=== PATIENT | female | born 1945 | race Caucasian/White ===

== ENCOUNTER → 2024-06-19 | Outpatient (CLI) | payer MEDICARE, BC, SELFPAY ==
--- NOTE | 2024-06-19 | XR_ITS ---
Examination: Lumbar spine, 5 views Technique: Lumbar spine AP, lateral, coned lateral lower lumbar spine, bilateral obliques 5 views Exam date and time: June 19, 2024 1211 hrs. Comparison October 08, 2021 Indications: Patient fell last year with injury to lower back, lower back pain. Findings: Severe osteopenia Kyphoplasty L4, L3 with cement projecting above and outside the L3 vertebral body No acute fracture Moderate disc narrowing L5-S1 Impression: Severe osteopenia. Kyphoplasty L4, L3 Moderate degenerative disc disease L5-S1
== END | disposition home or self-care (01) ==
PROVIDERS: PCP Family Medicine; Referring Provider Chiropractor; Visit Provider Chiropractor
DX: M85.88 Other specified disorders of bone density and structure, other site (principal); M51.379 Other intervertebral disc degeneration, lumbosacral region without mention of lumbar back pain or lower extremity pain
CPT/HCPCS: 72110

== ENCOUNTER 2024-09-20 22:20 | Emergency (ER) | payer MEDICARE, BC, SELFPAY ==
[2024-09-20 22:21] VITALS: BP 126/68; PULSE 81; RESP 18; TEMP 36.7; O2SAT 96; BMI 21.6
[2024-09-20 22:36] VITALS: PULSE 81; RESP 18; O2SAT 98
--- NOTE | 2024-09-20 22:48 | PD.EDFALL ---
ED Fall Injury RME/HPI General Chief Complaint: Fall Stated Complaint: fall Time Seen by Provider: 09/20/24 22:49 Arrival date/time: 09/20/24 22:20 RME / HPI RME / HPI Narrative: This section includes all my notes and documentations, including HPI, PE, and ED course. Travis Cool MD HPI: 78 y/o female with Hx of Arthritis and Osteoporosis presents to ED BIBA from home c/o severe right shoulder pain s/p fall x approximately 1 hour ago. Patient was using her walker when she tripped and fell, landing on her right shoulder. Denies hitting her head or LOC. No neck pain or back pain. No chest pain or abdominal pain. No other limb pain. No other complaints. ROS: All negative except as documented in HPI. Physical Exam: General: Alert and oriented. Appears uncomfortable. Eyes: Conjunctivae and lids clear. EOMI. PERRL. ENT: No signs of head trauma. Neck: Supple. No tenderness. Heart: RRR. Lungs: No respiratory distress. Good air movement. No rhonchi, wheezing, rales. Chest: No tenderness. Abdomen: Soft and nontender. Normal bowel sounds. No distension. No rebound or guarding. Back: No tenderness. Skin: Warm and dry. Neuro: Alert and oriented X 3. Cranial Nerves II-XII grossly intact. No peripheral motor deficits. Musculoskeletal: Remarkable for severe right shoulder tenderness. All other major joints and bones are not tender with no limited ROM. I reviewed EMS notes. I reviewed all diagnostic test results. My interpretation of the right shoulder x-ray is fracture. At this point, diagnoses include fracture of right shoulder Treatment here included Ibuprofen, Tylenol with Codeine, Lidocaine Patch, Arm Sling. Significant improvement noted. Recommended outpatient orthopedic care. Based on my best medical judgment, made decision no further evaluation or treatment indicated at this time. Patient understands and agrees to the discharge instructions customized and printed, see below. Discharge Instructions from Dr. Cool printed for you: 1. Unfortunately, you fractured your right shoulder. Fortunately, emergent surgery is not needed. 2. Wear the arm sling until cleared by a doctor taking care of you. 3. Apply ice for 20 minutes every 2-3 hours today and tomorrow. 4. Ibuprofen 200 mg every 6-8 hours today and tomorrow to decrease inflammation then as needed. Lidocaine patches and Tylenol with codeine for pain. 5. See your medical provider on 09/23/2024 for recheck. Ask for a referral to see orthopedic surgeon for further care. 6. Seek immediate medical care with intolerable pain, if you can't move your fingers, your fingers turn cold and blue, or with any concerns. Travis Cool MD Related Data Home Medications ?Medication ?Instructions ?Recorded ?Confirmed amlodipine 5 mg tablet 1 tab PO DAILY 12/15/21 12/22/21 atorvastatin 40 mg tablet 1 tab PO HS 12/15/21 12/22/21 gabapentin 300 mg capsule 1 cap PO TID 12/15/21 12/22/21 hydrocodone 5 mg-acetaminophen 325 1 tab PO BID 12/15/21 12/22/21 mg tablet Held on 12/15/21. Instructions: Resume on 12/16/21. Previous Rx's ?Medication ?Instructions ?Recorded acetaminophen 300 mg-codeine 30 mg 2 tab PO Q8H PRN pain #20 tabs 09/21/24 tablet lidocaine 5 % topical patch 2 patch topical QDAY PRN pain #30 09/21/24 (Lidoderm) ea Allergies Allergy/AdvReac Type Severity Reaction Status Date / Time doxycycline Allergy Severe Hives Verified 12/22/21 09:49 Sulfa (Sulfonamide Allergy Intermediate ICHY Verified 12/22/21 09:49 Antibiotics) Review of Systems Review of Systems Systems Reviewed: All systems reviewed, normal except as documented Past Medical History Past Medical History CARDIAC: Positive Cardiac Disorders, Hypercholesterolemia and Hypertension MUSCULOSKELETAL: Positive Musculoskeletal Disorders, Arthritis and Osteoporosis ENT: Positive Cataracts OTHER HISTORY: Positive Falls, Chicken Pox and Measles Family History FAMILY HISTORY: Positive Family Surgery Surgical History SURGICAL: Positive Tonsillectomy and Lumpectomy ED Exam Narrative Physical exam: Refer to HPI above Course Quality Measures none Orders Category Date Time Status sling [Splint / Immobilizer] STAT Care 09/21/24 00:57 Active XR shoulder RT min 2V Stat Exams 09/21/24 00:01 Taken ACETAMINOPHEN w/COD 300-30 [Tylenol w/Cod #3] Med 09/21/24 00:56 Discontinued 2 tab PO X1 ONE Ibuprofen Tab [Motrin Tab] Med 09/21/24 00:56 Discontinued 400 mg PO X1 ONE Lidocaine 5% Patch Med 09/21/24 00:56 Discontinued 2 patch TOP X1 ONE Vital Signs Vital signs: Vital Signs Temperature 98.1 F 09/20/24 22:21 Pulse Rate 81 09/20/24 22:21 Respiratory Rate 18 09/20/24 22:21 Blood Pressure 126/68 09/20/24 22:21 Pulse Oximetry (%) 96 09/20/24 22:21 Oxygen Delivery Method Room Air 09/20/24 22:21 Fall MDM Narrative MDM Narrative:: Scribe Attestation: ISindy, am scribing for and in the presence of Dr. Cool. Provider Notation: Although this document has been carefully reviewed, there may still be some phonetic and other typographical errors.? These errors are purely grammatical due to imperfections in the software program and should not be construed in any way to? compromise the substance of the patient's medical care during this visit. 78 y/o female with Hx of Arthritis and Osteoporosis presents to ED BIBA from home c/o severe right shoulder pain s/p fall x approximately 1 hour ago. Patient was using her walker when she tripped and fell. Denies hitting her head or LOC. Patient was not able to get up on her own and was down for about 30 minutes before EMS arrived. Patient has a Sulfa allergy. No other complaints. Patient data External records reviewed:: [facility] previous records (Reviewed prior ED records from 05/22/23. Patient was seen for Closed comminuted intra-articular fracture of distal end of femur.) and EMS form Clinical information provided by:: patient and EMS Social determinants that could affect healthcare access:: none Patient has the following chronic illnesses:: Hypercholesterolemia, Hypertension, Arthritis and Osteoporosis How is presenting disease/condition affected by chronic disease/condition?: exacerbated by Evaluation data The following diagnostics were reviewed and interpreted by me:: radiology exam(s) Lab and/or radiology exams considered but not ordered:: None Interpretation Summary: Right shoulder fracture Medications / Prescriptions Medications or Prescriptions considered but not ordered:: None Medication administrations:: Medication Administration History Discontinued Medications Acetaminophen/Codeine Phosphate (Acetaminophen W/Cod 300-30 Tablet) 2 tab PO X1 ONE Stop: 09/21/24 00:57 Last Admin: 09/21/24 02:02 Dose: 2 tab Documented By: GIOVANNI Ibuprofen (Ibuprofen Tab 400 Mg Tablet) 400 mg PO X1 ONE Stop: 09/21/24 00:57 Last Admin: 09/21/24 02:02 Dose: 400 mg Documented By: GIOVANNI Lidocaine (Lidocaine 5% 1 Patch) 2 patch TOP X1 ONE Stop: 09/21/24 00:57 Last Admin: 09/21/24 02:03 Dose: 2 patch Documented By: GIOVANNI Ibuprofen, Tylenol with Codeine, Lidocaine Patch Consultations Consultation(s) initiated? (list below): No Diagnosis Fall Differential Diagnosis: syncope, dislocation of shoulder region, fracture of wrist, compression fracture and concussion without loss of consciousness Most likely diagnosis given after review of the tests above:: Fracture of right shoulder Admission Indicated Admission indicated?: not indicated Explain why admission is indicated or not indicated:: With significant improvement, there was no indication for admission.? Admission Request Was there a request for admission?: No Disposition Plan Disposition Plan: Discharge Discharge Attestation Discharge Attestation: The patient and all family members were given an opportunity to ask questions and understood the discharge instructions. Discharge instructions specifically effects, indications for sooner follow up or return to the emergency department, and the expected course of current diagnosis. Patient condition: Stable Discharge Plan Plan Patient Disposition: HOME (Self Care) Prescriptions/Referrals Prescriptions/Med Rec: New acetaminophen-codeine 300-30 mg tablet 2 tab PO Q8H MDD 6 PRN (Reason: pain) Qty: 20 0RF lidocaine [Lidoderm] 5 % adhesive patch,medicated 2 patch topical QDAY PRN (Reason: pain) Qty: 30 0RF Rx Instructions: leave on most painful area for up to 12 hrs No Action atorvastatin 40 mg tablet 1 tab PO HS Patient Comments: TAKE 1 TABLET BY MOUTH EVERY DAY AT NIGHT AT BEDTIME hydrocodone-acetaminophen 5-325 mg tablet 1 tab PO BID Patient Comments: TAKE 1 TABLET BY MOUTH TWICE A DAY NEEDED amlodipine 5 mg tablet 1 tab PO DAILY Patient Comments: TAKE 1 TABLET BY MOUTH EVERY DAY gabapentin 300 mg capsule 1 cap PO TID Patient Comments: TAKE 1 CAPSULE BY MOUTH THREE TIMES A DAY FOR NEUROPATHY Problem List Clinical Impression: Fracture of right shoulder Patient/Caregiver Discharge Instructions Discharge Activity: activity as tolerated Education Materials: ED Fracture, Shoulder Additional Instructions: Discharge Instructions from Dr. Cool printed for you: 1. Unfortunately, you fractured your right shoulder. Fortunately, emergent surgery is not needed. 2. Wear the arm sling until cleared by a doctor taking care of you. 3. Apply ice for 20 minutes every 2-3 hours today and tomorrow. 4. Ibuprofen 200 mg every 6-8 hours today and tomorrow to decrease inflammation then as needed. Lidocaine patches and Tylenol with codeine for pain. 5. See your medical provider on 09/23/2024 for recheck. Ask for a referral to see orthopedic surgeon for further care. 6. Seek immediate medical care with intolerable pain, if you can't move your fingers, your fingers turn cold and blue, or with any concerns. Print Language: Burundian Stand Alone Forms: Marilyn Award Info., Patient Portal Info Letter
[2024-09-20 23:29] VITALS: BP 118/61; PULSE 79; RESP 19; TEMP 36.5; O2SAT 96
--- NOTE | 2024-09-21 00:01 | XR_ITS ---
Examination: Right shoulder 2 views TECHNIQUE: AP internal rotation Y-view right shoulder 2 views Date and time: September 21, 2024, 0023 hours INDICATIONS: Patient fell today with injury to the shoulder, shoulder pain. FINDINGS: Acute comminuted fractures humeral neck, angulation and at least 1.5 with shaft offset at the main fracture site No humeral head dislocation IMPRESSION: Acute comminuted angulated displaced fractures neck
[2024-09-21 02:02] VITALS: TEMP 36.9
[2024-09-21] MEDS: ACETAMINOPHEN w/COD 300-30 TABLET 2 TAB PO (02:02)
[2024-09-21] MEDS: IBUPROFEN TAB 400 MG TABLET PO (02:02)
[2024-09-21] MEDS: LIDOCAINE 5% 1 PATCH 2 PATCH TOP (02:03)
[2024-09-21 05:19] VITALS: BP 102/61; PULSE 74; RESP 20; TEMP 36.8; O2SAT 96
[2024-09-21 06:40] VITALS: BP 127/59; PULSE 88; RESP 16; TEMP 36.9; O2SAT 98
== END 2024-09-21 06:45 | disposition home or self-care (01) ==
LOC: SERX 09-21 05:02
PROVIDERS: Emergency Provider Emergency Medicine; PCP Family Medicine
DX: S42.201A Unspecified fracture of upper end of right humerus, initial encounter for closed fracture (principal); W01.0XXA Fall on same level from slipping, tripping and stumbling without subsequent striking against object, initial encounter
CPT/HCPCS: 73030; 99283; A4565; J3490; A9270

== ENCOUNTER 2025-03-05 16:32 | Inpatient (IN) | payer MEDICARE, BC, SELFPAY ==
--- NOTE | 2025-03-05 16:45 | PC.NURSE ---
Pt did not answer when name was called and was not found outside.
[2025-03-05 16:49] VITALS: BP 113/66; PULSE 90; RESP 16; TEMP 36.7; O2SAT 96; O2SAT 97; BMI 20.9; BMI 25.2
--- NOTE | 2025-03-05 17:25 | EKG_ITS ---
[facility] Test Date: 2025-03-05 Pat Name: ANNE CAT Department: Room: - Gender: Female [employer] Clerk: : 1945 Requested By: Ruby Nettles Order Number: [id number] Reading MD: Ruby Nettels Measurements Intervals [place] Rate: 84 P: 48 AR: 140 QRS: 36 QRSD: 94 T: 36 QT: 349 QTc: 414 Interpretive Statements SINUS RHYTHM No previous ECG available for comparison /store/S0/[id number]/ecg/[id number].pdf
--- NOTE | 2025-03-05 17:25 | XR_ITS ---
Examination: CT brain head without contrast. 2-D sagittal coronal reconstructions Date and time of exam: March 05, 2025, 1747 hours, comparison September 20, 2023 INDICATIONS: Ground-level fall today with injury to the head, head pain CTDI: vol (mGy): 48.5 DLP: (mGycm): 1002 Technique: Multiple CT axial sections of the brain have been obtained, 5 mm slice thickness. Contrast has not been administered. 2-D sagittal, coronal reconstructions have been obtained Low dose protocols were performed. One or more of the following dose reduction techniques were used; automated exposure control, adjustment of the mA and/or KV according to patient size, use of iterative reconstruction technique. Findings: No significant ventricular enlargement. 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 No mass effect or midline shift Basal cisterns are not remarkable. Fourth ventricle is midline. Cranial vault intact. Impression: Negative for acute hemorrhage, mass effect or midline shift
--- NOTE | 2025-03-05 17:25 | XR_ITS ---
Examination: Left hip AP, lateral, AP pelvis 3 views Technique: Hip AP lateral, AP pelvis, 3 views Exam date and time: March 05, 2025, 1741 hours INDICATIONS: Patient fell today with injury to the left hip, left hip pain. FINDINGS: No acute left hip fracture or dislocation Right hip bones of the pelvis intact IMPRESSION: No acute hip or pelvic fracture If pain persists, recommend 1 day follow-up AP pelvis.
--- NOTE | 2025-03-05 17:25 | XR_ITS ---
Examination: CT cervical spine without contrast 2-D sagittal reconstructions 2-D coronal reconstructions 3-D reconstructions. Exam date and time: March 05, 2025, 1749 hours, comparison May 22, 2023 INDICATIONS: Ground-level fall today with injury to the neck, neck pain CTDI:vol (mGy) 13.6 DLP: (mGycm) 305 Technique: Multiple 2 mm axial sections of the cervical spine have been obtained. The coronal and sagittal reconstructions have been obtained. 3-D reconstructions have been obtained. Low dose protocols were performed. One or more of the following dose reduction techniques were used; automated exposure control, adjustment of the mA and/or KV according to patient size, use of iterative reconstruction technique. Findings: Axial sections demonstrate intact base of the skull. C1 exhibit satisfactory relationship to the odontoid. No acute cervical vertebral body fracture seen. Alignment posterior spinous processes satisfactory. Stable minimal chronic wedging T2 Impression: No acute cervical fracture.
--- NOTE | 2025-03-05 17:25 | XR_ITS ---
EXAMINATION: AP chest single view TECHNIQUE: AP portable supine chest single view Date and time: March 05, 2025, 1741 hours INDICATIONS: Patient fell today with injury to the chest, chest pain. FINDINGS: Moderate prominence left ventricle No pneumothorax Left axillary surgical clips Clavicles ribs appear intact IMPRESSION: No pneumothorax pulmonary contusion or hemothorax
--- NOTE | 2025-03-05 17:27 | PD.EDAMS ---
Altered Mental Status RME/HPI General Chief Complaint: Altered Mental Status Stated Complaint: alter mental status Time Seen by Provider: 03/05/25 17:30 Arrival date/time: 03/05/25 16:32 79-year-old female patient with significant history of hypertension, was brought in by EMS for evaluation regarding altered mental status. Last well-known time yesterday patient was noted to be altered than usual, usually GCS 15 currently GCS 13. Apparently today her caregiver visited her and patient patient was noted lying on the floor with a pillow on cell phone with her. Patient denies any headache neck pain chest pain but complain of mild pelvic pain more on the left hip. Patient denies any fever dysuria abdominal pain cough or other complaints. No fever noted also. No other complaints noted. Patient not taking any blood thinner. Patient lives alone. Per conversation with her daughter patient was noted to be getting worsening confusion for the last 1 week. Related Data Home Medications ?Medication ?Instructions ?Recorded ?Confirmed amlodipine 5 mg tablet 1 tab PO DAILY 12/15/21 12/22/21 atorvastatin 40 mg tablet 1 tab PO HS 12/15/21 12/22/21 gabapentin 300 mg capsule 1 cap PO TID 12/15/21 12/22/21 hydrocodone 5 mg-acetaminophen 325 1 tab PO BID 12/15/21 12/22/21 mg tablet Held on 12/15/21. Instructions: Resume on 12/16/21. Previous Rx's ?Medication ?Instructions ?Recorded acetaminophen 300 mg-codeine 30 mg 2 tab PO Q8H PRN pain #20 tabs 09/21/24 tablet lidocaine 5 % topical patch 2 patch topical QDAY PRN pain #30 09/21/24 (Lidoderm) ea Allergies Allergy/AdvReac Type Severity Reaction Status Date / Time doxycycline Allergy Severe Hives Verified 12/22/21 09:49 Sulfa (Sulfonamide Allergy Intermediate ICHY Verified 12/22/21 09:49 Antibiotics) Review of Systems Review of Systems Narrative Review of Systems: Review of system reviewed and within normal limits except mentioned in HPI ED Exam Narrative Physical exam: VITAL SIGNS: Reviewed. GENERAL APPEARANCE: follows commands, no acute distress, alert oriented x 2 GCS 14 HEAD AND FACE: Non-traumatic. ENT: PERRL, pink conjunctivitis, eyelid no trauma, Mucous membrane moist. NECK: Supple, nontender, no nuchal rigidity. CHEST: No tenderness, no crepitus, no paradoxical movement, no retractions. LUNGS: Clear, well ventilated, symmetric, no rales, no wheezing, no ronchi, no stridor, good breath sounds bilaterally. HEART: Regular rate, regular rhythm, no murmur, no gallops. ABDOMEN: Soft, positive bowel sounds, nondistended, no guarding, nontender, no rebound, no masses, RECTAL: Deferred. GENITAL: Deferred. NEUROLOGICAL: Gross motor function intact sensory function intact, Appropriate for age. MUSCULOSKELETAL: low back nontender, full range of motion. EXTREMITIES: Left hip tenderness, full range of motion. SKIN: Color pink, dry, no rash, no lacerations, no abrasions, no contusions. LYMPHATICS: Deferred. Course Quality Measures none Orders Category Date Time Status EKG (ED ONLY) *Do not use* NOW Care 03/05/25 17:26 Completed Straight [In and Out Catheter] X1 Care 03/05/25 17:[address] cervical spine wo con Stat Exams 03/05/25 17:[address] head/brain wo con Stat Exams 03/05/25 17:25 Completed EKG (ED Only) Stat Exams 03/05/25 17:25 Draft XR chest 1V Stat Exams 03/05/25 17:25 Completed XR hip LT w pelvis 2-3V Stat Exams 03/05/25 17:25 Completed B-Type Natriuretic Peptide Stat Lab 03/05/25 18:20 Completed CBC Stat Lab 03/05/25 18:20 Completed Comprehensive Metabolic Panel Stat Lab 03/05/25 18:20 Completed Partial Thromboplastin Time Stat Lab 03/05/25 18:20 Completed Troponin I Stat Lab 03/05/25 18:20 Completed Urinalysis, C/S if Indicated Stat Lab 03/05/25 19:31 Completed Urine Culture Stat Lab 03/05/25 19:31 Received Ringers Lactated 1000 ml [Lactated Ringers] 1,000 ml Med 03/05/25 17:26 Discontinued IV 999 mls/hr cefTRIAXone/D5w 1gm IV premix [Rocephin/D5w 1gm IV Med 03/05/25 20:13 Active premix] 1 gm in 50 ml IV X1 Vital Signs Vital signs: Vital Signs Temperature 98.0 F 03/05/25 16:49 Pulse Rate 90 03/05/25 16:49 Respiratory Rate 16 03/05/25 16:49 Blood Pressure 113/66 03/05/25 16:49 Pulse Oximetry (%) 96 03/05/25 16:49 Oxygen Delivery Method Room Air 03/05/25 16:49 Altered Mental Status MDM Narrative MDM Narrative:: 03/05/25 16:32 79-year-old female patient with significant history of hypertension, was brought in by EMS for evaluation regarding altered mental status. Last well-known time yesterday patient was noted to be altered than usual, usually GCS 15 currently GCS 13. Apparently today her caregiver visited her and patient patient was noted lying on the floor with a pillow on cell phone with her. Patient denies any headache neck pain chest pain but complain of mild pelvic pain more on the left hip. Patient denies any fever dysuria abdominal pain cough or other complaints. No fever noted also. No other complaints noted. Patient not taking any blood thinner. Patient lives alone. Per conversation with her daughter patient was noted to be getting worsening confusion for the last 1 week. On multiple reevaluation patient was noted to be confused GCS of 13 she is only very alert and oriented x 4. Her laboratory workup is significant for UTI. CBC came back unremarkable. BMP unremarkable. CT scan of the head came back normal cervical CT scan came back unremarkable chest x-ray came back unremarkable x-ray of the pelvis came back unremarkable. Patient was given IV fluids, was also given IV ceftriaxone. Patient data External records reviewed:: None Clinical information provided by:: patient Social determinants that could affect healthcare access:: none Patient has the following chronic illnesses:: Hypertension How is presenting disease/condition affected by chronic disease/condition?: uneffected by Evaluation data The following diagnostics were reviewed and interpreted by me:: lab results, radiology exam(s) and EKG tracing(s) Lab and/or radiology exams considered but not ordered:: None Interpretation Summary: EKG shows sinus rhythm, ventricular rate of 84 bpm, no ST segment elevation depression noted. Medications / Prescriptions Medications or Prescriptions considered but not ordered:: None Medication administrations:: Medication Administration History Ceftriaxone Sodium/Dextrose (Rocephin/D5w 1gm Iv Premix) 1 gm in 50 mls @ 100 mls/hr IV X1 ONE Stop: 03/05/25 20:42 Discontinued Medications Lactated Ringer's (Lactated Ringers) 1,000 mls @ 999 mls/hr IV .Q1H1M ONE Stop: 03/05/25 18:26 Last Infusion: 03/05/25 19:58 Dose: Infused Documented By: Admin: 03/05/25 18:51 Dose: 999 mls/hr Documented By: DELFINA IV fluids ceftriaxone IV Consultations Consultation(s) initiated? (list below): No Diagnosis Differential diagnosis altered mental status: altered mental status and sepsis Most likely diagnosis given after review of the tests above:: Altered mental status, UTI Admission Indicated Admission indicated?: indicated Admission Request Was there a request for admission?: Yes Admission Attestation Admission request attestation: Discussed case with [Dr. Soni] from Hospitalist service regarding admission. Discussed patients ED course, exam findings, labs, and radiology results. The Hospitalist [agrees,] to accept the patient for admission. Disposition Plan Disposition Plan: Admit Discharge Plan Plan Patient Disposition: Admit Acute Care w/in Hospital Prescriptions/Referrals Prescriptions/Med Rec: No Action atorvastatin 40 mg tablet 1 tab PO HS Patient Comments: TAKE 1 TABLET BY MOUTH EVERY DAY AT NIGHT AT BEDTIME hydrocodone-acetaminophen 5-325 mg tablet 1 tab PO BID Patient Comments: TAKE 1 TABLET BY MOUTH TWICE A DAY NEEDED amlodipine 5 mg tablet 1 tab PO DAILY Patient Comments: TAKE 1 TABLET BY MOUTH EVERY DAY gabapentin 300 mg capsule 1 cap PO TID Patient Comments: TAKE 1 CAPSULE BY MOUTH THREE TIMES A DAY FOR NEUROPATHY acetaminophen-codeine 300-30 mg tablet 2 tab PO Q8H MDD 6 PRN (Reason: pain) Qty: 20 0RF lidocaine [Lidoderm] 5 % adhesive patch,medicated 2 patch topical QDAY PRN (Reason: pain) Qty: 30 0RF Rx Instructions: leave on most painful area for up to 12 hrs Referrals: No Primary/Family,Physician [Primary Care Provider] - In 1 week Problem List Clinical Impression: Altered mental status, UTI (urinary tract infection) Patient/Caregiver Discharge Instructions Discharge Activity: activity as tolerated Education Materials: Understanding Urinary Tract ... Print Language: Italian Stand Alone Forms: Marilyn Award Info., Patient Portal Info Letter
--- NOTE | 2025-03-05 17:32 | PC.NURSE ---
NIH scored a 5 due to patients underlying lower extremity weakness and confusion noted at this time.
[2025-03-05 18:29] VITALS: BP 135/76; PULSE 82; RESP 21; TEMP 36.6; O2SAT 97
[2025-03-05] MEDS: RINGERS LACTATED 1000 ML 1,000 ML 999 ML IV (18:51)
[2025-03-05 18:54] LABS: Basophils # (Auto) 0.0 Thou/mm3 (0.0-0.2); Basophils % (Auto) 0 % (0-2.5); Eosinophils # (Auto) 0.1 Thou/mm3 (0.0-0.5); Eosinophils % (Auto) 1 % (0-10); Hematocrit 38.8 % (36.0-46.0); Hemoglobin 13.3 g/dL (12.0-16.0); Immature Granulocytes Auto 0.07 Thou/mm3 (0.00-0.00); Lymphocytes # (Auto) 0.9 Thou/mm3 (1.0-4.8); Lymphocytes % (Auto) 9 % (10-50); Mean Corpuscular HGB Conc 34.3 g/dl (31.0-37.0); Mean Corpuscular Hemoglobin 34.1 pg (25.0-35.0); Mean Corpuscular Volume 100 fL (80-100); Monocytes # (Auto) 0.8 Thou/mm3 (0.0-0.8); Monocytes % (Auto) 9 % (0-12); Neutrophils # (Auto) 7.6 Thou/mm3 (1.8-7.7); Neutrophils % (Auto) 80 % (37-80); Nucleated Red Blood Cell # 0.00 Thou/mm3 (0.00-0.00); Nucleated Red Blood Cell % 0 /100 WBC (0); Platelet Count 230 Thou/mm3 (140-440); RDW Standard Deviation 55.4 fL (36.4-46.3); Red Blood Count 3.90 Miln/mm3 (4.00-5.20); White Blood Count 9.5 Thou/mm3 (3.6-11.0)
[2025-03-05 19:02] LABS: Partial Thromboplastin Time 23.6 Seconds (22.0-36.0)
[2025-03-05 19:04] LABS: Alanine Aminotransferase 39 U/L (10-49); Albumin, Serum 3.6 gm/dL (3.4-4.8); Albumin/Globulin Ratio 1.7 (1.2-2.2); Alkaline Phosphatase 115 U/L (46-116); Anion Gap 16 (7-16); Aspartate Amino Transferase 37 U/L (0-34); BUN/Creatinine Ratio 12 Ratio (12-20); Bilirubin,Total 0.8 mg/dL (0.3-1.2); Blood Urea Nitrogen 7 mg/dL (9-23); Calcium 9.1 mg/dL (8.3-10.6); Calcium (Corrected) 9.4 mg/dL (8.5-10.1); Carbon Dioxide 23.0 mMol/L (20.0-31.0); Chloride 99 mMol/L (98-107); Creatinine (Component) 0.6 mg/dL (0.6-1.3); Estimated Creatinine Clearance 70.0 mL/min (>60); Globulin 2.1 gm/dL (2.3-3.5); Glucose 88 mg/dL (74-106); Osmolality,Calculated 272 (275-295); Potassium 3.4 mMol/L (3.4-5.1); Sodium 138 mMol/L (136-145); Total Protein 5.7 gm/dL (5.7-8.2); Troponin I < 0.020 ng/mL (0.0-0.045); eGFR > 60 See Note
[2025-03-05 19:15] LABS: B-Type Natriuretic Peptide 51 pg/mL (0-100)
[2025-03-05 19:26] VITALS: BP 134/77; PULSE 75; RESP 18; TEMP 36.7; O2SAT 99
[2025-03-05 19:46] LABS: Collection Type, Urine Clean Catch
[2025-03-05 20:07] LABS: Bacteria,Urine 4+; Bilirubin,Urine Negative (Negative); Blood,Urine Trace (Negative); Clarity,Urine Turbid (Clear/Hazy); Color,Urine Yellow (Lt Yel-Yel); Glucose, Urine Negative (Negative); Ketones,Urine 3+ (Negative); Leukocyte Esterase,Urine Positive (Negative); Nitrite,Urine Positive (Negative); PH,Urine 5.5 (5.0-7.0); Protein,Urine 1+ (Neg - Trace); RBC,Urine 24 /hpf (0-3); Specific Gravity,Urine 1.020 (1.001-1.035); Squamous Epithelial Cell,Urine 4 /hpf (0-5); Transitional Epi Cells,Urine 1 /hpf (0-5); Urobilinogen,Urine 2.0 mg/dL (0.0-1.0); WBC,Urine 396 /hpf (0-5)
[2025-03-05 20:09] LABS: Culture Indicated,Urine Yes
[2025-03-05] MEDS: cefTRIAXone/D5w 1gm IV premix 1 GM/50 ML BAG IV (20:27)
[2025-03-05 20:33] VITALS: BP 135/82; PULSE 83; RESP 16; TEMP 36.7; O2SAT 97
--- NOTE | 2025-03-05 21:35 | XR_ITS ---
Examination: Abdomen AP single view Technique: AP portable supine abdomen, single view Exam date and time: March 05, 2025, 2158 hours INDICATIONS: Abdominal tenderness and distention today. FINDINGS: Moderate to large amounts of stool throughout the colon Mild small bowel ileus No free air. Severe osteopenia with kyphoplasties involving multiple lumbar vertebral bodies IMPRESSION: Moderate to large amounts of stool throughout the colon Mild small bowel ileus
[2025-03-05 21:57] LABS: Amphetamine/Methamp Scrn,U Negative (Negative); Barbiturate Screen,Urine Negative (Negative); Benzodiazepines Screen,Urine Negative (Negative); Benzoylecgonine Screen, Ur Negative (Negative); Fentanyl Screen,Urine Negative (Negative); Opiate Screen,Urine Negative (Negative); THC Screen,Urine Negative (Negative)
--- NOTE | 2025-03-05 22:50 | PC.NURSE ---
REPORT GIVEN TO FLOOR NURSE ABNER
[2025-03-05 23:20] VITALS: BMI 17.9
--- NOTE | 2025-03-05 23:22 | PC.NURSE ---
patient is alert and oriented x name, place, and situation but not oriented to time. Attempted to call both daughters, martin and ronald 2x each, with no answer to obtain admission questions. Pt is able to answer some questions with accuracy in comparison to chart review, but is unable to recall some information. Will pass to day nurse to attempt to obtain information again.
--- NOTE | 2025-03-05 23:24 | ESHP_ITS ---
<Statement entered by Cat Kevin MD - 03/06/25 05:24> Inessa Laguerre is 79 yr female with past medical history of hypertension and osteoporosis brought in by ambulance after caregiver found patient to be lying on the floor. Per caregiver and daughter, patient's baseline mentation is alert and oriented x 3. Requires assistance with ADLs. Caregiver noticed worsening confusion since past 1 week. At bedside, she is oriented to self and place. At this time she is denying any urinary symptoms, headache, n/v, abdominal pain. Patient is aware that she is in the hospital due to a fall. Vitals were stable, labs unremarkable, UA consistent with UTI. EKG sinus rhythm QTC 414. Abd Xr moderate to large amounts of stool throughout the colon, mild small bowel ileus. Hip and pelvis XR no acute fractures. Head CT unremarkable. Chest XR negative for disease, no cervical fracture on CT spine. Patient admitted for Acute encephalopathy in setting of UTI. Started IV ceftriaxone, urine cultures are pending and PT. The patient's management plan was discussed with my attending physician Dr. Garza. Cat Kevin, PGY-2 Documentation for date of: 03/05/25 HPI History of Present Illness History of present illness: 79-year-old female patient with significant history of hypertension, was brought in by EMS for evaluation regarding altered mental status. Admitted for acute encephalopathy found to have UTI. ED Course Summary Vitals: BP 113/66 HR 90 RR 16 T 98F O2 sat 96% RA Labs: CBC wnl CMP wnl UA turbid protein +1 ketones +3 RBC 24 WBC 396 Bacteria +4 Leukocyte Esterase + Imaging: EKG sinus rhythm QTC 414. Abd Xr moderate to large amounts of stool throughout the colon, mild small bowel ileus. Hip and pelvis XR no acute fractures. Head CT unremarkable. Chest XR no pneumothorax, pulmonary contusion or hemothorax. Cervical spine CT no acute cervical fracture. Treatment: Magnesium hydroxide 30mL, Ceftriaxone, LR 1 L. Upon initial exam patient is AOx1 but in no apparent distress. She was not able to recall much of her history so most of the following note is pulled from ED documentation. Her last known well-known time yesterday patient was noted to be altered than usual, was CGS13 in ED, currently GCS 15. Apparently today her caregiver visited her and patient patient was noted lying on the floor with a pillow on cell phone with her. She is unsure how long she was unconscious for. Patient denies any headache neck pain chest pain but complain of mild pelvic pain more on the left hip. She was relieved to learn the imaging was negative for any acute fractures. Patient denies any fever dysuria abdominal pain cough or other complaints. No fever noted also. No other complaints noted denies, headache, nausea, vomiting, dizziness, chills. Is unsure of what medications she takes at home. Patient not taking any blood thinner. Patient lives alone. Per conversation with her daughter patient was noted to be getting worsening confusion for the last 1 week. 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 Exam Vital Signs Temp Pulse Resp BP Pulse Ox O2 Del Method 98.0 F 83 16 135/82 H 97 Room Air 03/05/25 20:33 03/05/25 20:33 03/05/25 20:33 03/05/25 20:33 03/05/25 20:33 03/05/25 20:33 Narrative Exam GENERAL APPEARANCE: AOx1. NAD, activity normal for age, well developed/ well nourished, no cyanosis, pallor, or diaphoresis. HEENT: Normocephalic atraumatic, no facial trauma, neck is supple. Lids/conjunctiva normal. Mucous membranes moist, nares normal, lips/teeth normal uvula midline without oral pharyngeal erythema, exudate or swelling TMs normal bilaterally. No lymphangitis/lymphedema. CARDIAC: Regular rate and rhythm, S1+S2 heard. No murmurs, rubs, or gallops noted RESPIRATORY: respiratory effort normal, speaks in full sentences, no tripod position, no accessory muscle use. Lungs clear to auscultation without rhonchi, wheezes, rales ABDOMINAL: NBS. Soft, ND/NT. No evidence of fluid wave. No pulsatile masses on exam, rebound tenderness, Mantilla sign or pain over Mcburney's point. MUSCLES/EXTREMITIES: No abnormal range of motion, no swelling. DERM: Warm, pink and dry. No rashes, dermatoses, petechiae or lesions. NEUROLOGICAL: Speech is clear and appropriate. Normal level of consciousness. Gait and coordination are normal. 5/5 strength in all extremities. PSYCH: Normal mood and affect. Judgement/competence is appropriate Results: Labs 03/06/25 04:40 03/06/25 04:40 Labs: Short CBC 03/05/25 Range/Units 18:20 WBC 9.5 (3.6-11.0) Thou/mm3 Hgb 13.3 (12.0-16.0) g/dL Hct 38.8 (36.0-46.0) % Plt Count 230 (140-440) Thou/mm3 BMP 03/05/25 18:20 Sodium 138 Potassium 3.4 Chloride 99 Carbon Dioxide 23.0 BUN 7 L Creatinine 0.6 Glucose 88 Calcium 9.1 Cardiac Enzymes 03/05/25 Range/Units 18:20 Troponin I < 0.020 (0.0-0.045) ng/mL Liver Function 03/05/25 Range/Units 18:20 Total Bilirubin 0.8 (0.3-1.2) mg/dL AST 37 H (0-34) U/L ALT 39 (10-49) U/L Alkaline Phosphatase 115 (46-116) U/L Albumin 3.6 (3.4-4.8) gm/dL Urine 03/05/25 Range/Units 19:31 Urine Color Yellow (Lt Yel-Yel) Urine Clarity Turbid A (Clear/Hazy) Urine pH 5.5 (5.0-7.0) Ur Specific [place] 1.020 (1.001-1.035) Urine Protein 1+ A (Neg - Trace) Urine Glucose (UA) Negative (Negative) Quality Measures Quality Measures VTE prophylaxis and none Advance care planning discussed with:: patient Medications Home Medications and Allergies Home Medications ?Medication ?Instructions ?Recorded ?Confirmed ?Type amlodipine 5 mg tablet 1 tab PO DAILY 12/15/2102/22 History Held on 03/05/25. Instructions: Doctor's Order atorvastatin 40 mg tablet 1 tab PO HS 12/15/21 History Held on 03/05/25. Instructions: Doctor's Order gabapentin 300 mg capsule 1 cap PO TID 12/15/21 History Held on 03/05/25. Instructions: Doctor's Order hydrocodone 5 mg-acetaminophen 325 1 tab PO BID 03/05/25 History mg tablet Held on 12/15/21. Instructions: Resume on 12/16/21. Allergies Allergy/AdvReac Type Severity Reaction Status Date / Time doxycycline Allergy Severe Hives Verified 12/22/21 09:49 Sulfa (Sulfonamide Allergy Intermediate ICHY Verified 12/22/21 09:49 Antibiotics) Visit Medications Acetaminophen (Acetaminophen 325 Mg Tablet) 650 mg PO Q6H PRN PRN Reason: Fever >101.5 Stop: 04/04/25 22:19 Acetaminophen (Acetaminophen 325 Mg Tablet) 650 mg PO Q6H PRN PRN Reason: PAIN Stop: 04/04/25 22:19 Heparin Sodium (Porcine) (Heparin Sod Inj 5000 Unit/Ml Vial) 5,000 unit SC BID DONOVAN Stop: 03/20/25 08:59 Ceftriaxone Sodium/Dextrose (Rocephin/D5w 1gm Iv Premix) 1 gm in 50 mls @ 100 mls/hr IV Q24H DONOVAN Stop: 03/13/25 20:59 Discontinued Medications Lactated Ringer's (Lactated Ringers) 1,000 mls @ 999 mls/hr IV .Q1H1M ONE Stop: 03/05/25 18:26 Last Infusion: 03/05/25 19:58 Dose: Infused Ceftriaxone Sodium/Dextrose (Rocephin/D5w 1gm Iv Premix) 1 gm in 50 mls @ 100 mls/hr IV X1 ONE Stop: 03/05/25 20:42 Last Infusion: 03/05/25 21:07 Dose: Infused Assessment & Plan Plan 79-year-old female patient with significant history of hypertension, was brought in by EMS for evaluation regarding altered mental status. Admitted for acute encephalopathy found to have UTI. #Acute encephelopathy most likely 2/2 #Acute cystitis w hematuria Patient is AOx1 on initial examination, thought she was in [place] and that the year was 2064. Lives with her daughter, has a dba developer assist her in the afternoons. Is unsure of how long she was unconscious for. Is currently still feeling somewhat confused. Plan -Ceftriaxone 1g IV QD (11/12 - -FUP urine cx:___ -TSH:___ -PT referred:___ #Constipation No BM in 4 days. Abdominal xray moderate amounts of stool, and concern for small bowel ileus. Plan: -FUP TSH:___ -Milk of Magnesia 30mL PO Q12HR PRN #CIWA Patient reports drinking a large glass of wine each night for many years, is unsure of how many years but appears for decades. No signs of withdrawal at the moment. Plan: -CIWA protocol #HTN Plan: -Restart amlodipine 5mg PO QD Health Maintenance: Code status: Full DVT prophylaxis: Heparin GI prophylaxis: Famotidine Diet: Cardiac [place]: None Lines: PIV Supplemental O2: NC Disposition: Admit to [facility] for acute encephelopathy Patient seen and reviewed with attending Dr. Garza. Note written by Victor Manuel Red MD PGY-1 Attending Provider Attestation/Addendum After examination of the patient and review of the clinical data I feel that this patient needs admission to the hospital for further treatment/evaluation. Plan of care discussed with patient and is in agreement. I Doroteo Garza MD, attest that I was physically present for hurtado portions of evaluation, and examined patient, labs and imagings and plan of care were discussed with IM residents team, and I agree with the findings and plans documented above.
[2025-03-06] VITALS (12 sets, daily range): BP systolic 107–136; BP diastolic 69–82; PULSE 72–97; RESP 16–98; TEMP 36.1–37; O2SAT 94–97
[2025-03-06] MEDS: Milk Of Magnesia Susp 30 ML UDC PO ×2 (01:26→13:58)
[2025-03-06 06:35] LABS: Basophils # (Auto) 0.0 Thou/mm3 (0.0-0.2); Basophils % (Auto) 1 % (0-2.5); Eosinophils # (Auto) 0.1 Thou/mm3 (0.0-0.5); Eosinophils % (Auto) 2 % (0-10); Hematocrit 37.9 % (36.0-46.0); Hemoglobin 13.3 g/dL (12.0-16.0); Immature Granulocytes Auto 0.04 Thou/mm3 (0.00-0.00); Lymphocytes # (Auto) 0.9 Thou/mm3 (1.0-4.8); Lymphocytes % (Auto) 16 % (10-50); Mean Corpuscular HGB Conc 35.1 g/dl (31.0-37.0); Mean Corpuscular Hemoglobin 34.6 pg (25.0-35.0); Mean Corpuscular Volume 99 fL (80-100); Monocytes # (Auto) 0.6 Thou/mm3 (0.0-0.8); Monocytes % (Auto) 11 % (0-12); Neutrophils # (Auto) 4.1 Thou/mm3 (1.8-7.7); Neutrophils % (Auto) 71 % (37-80); Nucleated Red Blood Cell # 0.00 Thou/mm3 (0.00-0.00); Nucleated Red Blood Cell % 0 /100 WBC (0); Platelet Count 232 Thou/mm3 (140-440); RDW Standard Deviation 55.3 fL (36.4-46.3); Red Blood Count 3.84 Miln/mm3 (4.00-5.20); White Blood Count 5.8 Thou/mm3 (3.6-11.0)
--- NOTE | 2025-03-06 06:43 | PC.NURSE ---
unable to complete med rec due to patients confusion and daughters not answering, passed on to queenie GALARZA
[2025-03-06 06:47] LABS: Anion Gap 16 (7-16); BUN/Creatinine Ratio 10 Ratio (12-20); Blood Urea Nitrogen 5 mg/dL (9-23); Calcium 8.8 mg/dL (8.3-10.6); Carbon Dioxide 25.2 mMol/L (20.0-31.0); Chloride 97 mMol/L (98-107); Creatinine (Component) 0.5 mg/dL (0.6-1.3); Estimated Creatinine Clearance 71.5 mL/min (>60); Glucose 82 mg/dL (74-106); Magnesium 1.5 mg/dL (1.6-2.6); Osmolality,Calculated 271 (275-295); Phosphorous 2.6 mg/dL (2.4-5.1); Potassium 3.3 mMol/L (3.4-5.1); Sodium 138 mMol/L (136-145); Thyroid Stimulating Hormone 1.42 uIU/mL (0.55-4.78); eGFR > 60 See Note
[2025-03-06] MEDS: HEPARIN SOD INJ 5000 UNIT/ML VIAL SC ×2 (09:02→20:20)
--- NOTE | 2025-03-06 11:07 | PC.SS ---
Inessa Lageurre is an 79-year-old male admitted to Med-Surg for Acute Encephalopathy. SS conducted bedside contact with the patient to complete initial assessment and to discuss discharge planning. Role and reason explained. Pt requested SS to speak to her daughter Mary Ellis [phone]. SS conducted over the phone contact with Mary, who confirmed all demographics. Cecilio stated pt does live alone and has Visiting Ione visit her daily for a few hours. Pt at baseline utilizes a rollator walker. Mary identifies herself as the pts surrogate decision maker. Mary also wanted to add pts dtr in law Ameena Laguerre [phone] as a secondary contact. SS inquired on DC plan, per Mary they are open for pt going to short-term rehab. Their preference is [facility] [phone] in [place]. Pts PCP is Dr. Silvia Parish, unsure of last visit. SS attempted to make contact with [facility] but was unsuccessful, SS lefft a voicemail for Alyssa Mcleod [phone]. DC plan: SNF DM: Dtr, Mary Ellis [phone]
[2025-03-06] MEDS: POTASSIUM CHLORIDE 10% 20 MEQ/15 ML UDC 40 MEQ PO (11:25)
--- NOTE | 2025-03-06 11:25 | PC.SS ---
Addendum entered by Belkys Christian 03/06/25 15:06: SS spoke to Mary who stated pt was at a SNF in [place] called [facility]. SS submitted referral via TEE to [facility]. SS called [phone] and spoke to Gio. Per Gio admin is reviewing case and they will reach back out with answer by later this evening or tomorrow. Addendum entered by Belkys Christian 03/06/25 13:36: [facility], declined placement. SS attempted to reach Mary schaefer to inquire on other choices, no answer. VM left. Original Note: SNF referral sent via TEE to [facility], pending response.
[2025-03-06] MEDS: MAGNESIUM OXIDE 400 MG TABLET PO ×2 (13:56→20:21)
--- NOTE | 2025-03-06 14:03 | PD.RESPRO ---
Documentation for date of: 03/06/25 Subjective Subjective Interval history: No overnight events. Patient was examined at bedside; they appear A&Ox1 (oriented to self only) and in NAD. Vitals/labs today significant for potassium 3.3, anion gap 16, magnesium 1.5, TSH 1.42. 03/05 UA suggestive of UTI, urine culture pending. Abdominal x-ray showed moderate to large amounts of stool burden and mild small bowel ileus. Physical exam noncontributory. At this time, patient remains seemingly encephalopathic and will be continued on her Rocephin IV for treatment of her UTI without any new changes to management today. Exam Vital Signs Temp Pulse Resp BP Pulse Ox O2 Del Method 97.6 F 90 20 126/82 97 Room Air 03/06/25 08:45 03/06/25 09:10 03/06/25 08:45 03/06/25 09:10 03/06/25 08:45 03/06/25 08:45 Narrative Exam GENERAL APPEARANCE: AOx1. NAD, no cyanosis, pallor, or diaphoresis. HEENT: Normocephalic atraumatic, no facial trauma, neck is supple. Lids/conjunctiva normal. Mucous membranes moist, nares normal, lips/teeth normal uvula midline without oral pharyngeal erythema, exudate or swelling TMs normal bilaterally. No lymphangitis/lymphedema. CARDIAC: Regular rate and rhythm, S1+S2 heard. No murmurs, rubs, or gallops noted RESPIRATORY: respiratory effort normal, speaks in full sentences, no tripod position, no accessory muscle use. Lungs clear to auscultation without rhonchi, wheezes, rales ABDOMINAL: NBS. Soft, ND/NT. No evidence of fluid wave. No pulsatile masses on exam, rebound tenderness, Mantilla sign or pain over Mcburney's point. MUSCLES/EXTREMITIES: No abnormal range of motion, no swelling. DERM: Warm, pink and dry. No rashes, dermatoses, petechiae or lesions. NEUROLOGICAL: Unable to assess properly due to patient's difficulty with following instructions PSYCH: Normal mood and affect. Objective Labs 03/07/25 05:35 03/07/25 05:35 Labs: Laboratory Results - last 24 hr 03/05/25 03/05/25 03/05/25 18:20 19:31 20:38 WBC 9.5 RBC 3.90 L Hgb 13.3 Hct 38.8 MCV 100 MCH 34.1 MCHC 34.3 RDW Std Deviation 55.4 H Plt Count 230 Neut % (Auto) 80 Lymph % (Auto) 9 L [place] % (Auto) 9 Eos % (Auto) 1 Baso % (Auto) 0 Neut # (Auto) 7.6 Lymph # (Auto) 0.9 L [place] # (Auto) 0.8 Eos # (Auto) 0.1 Baso # (Auto) 0.0 Immature Gran # (Auto) 0.07 H Absolute Nucleated RBC 0.00 Immature Gran % 1 H Nucleated RBC % 0 APTT 23.6 Sodium 138 Potassium 3.4 Chloride 99 Carbon Dioxide 23.0 Anion Gap 16 BUN 7 L Creatinine 0.6 Estim Creat Clear Calc 70.0 eGFR > 60 BUN/Creatinine Ratio 12 Glucose 88 Calculated Osmolality 272 L Calcium 9.1 Corrected Calcium 9.4 Phosphorus Magnesium Total Bilirubin 0.8 AST 37 H ALT 39 Alkaline Phosphatase 115 Troponin I < 0.020 B-Natriuretic Peptide 51 Total Protein 5.7 Albumin 3.6 Globulin 2.1 L Albumin/Globulin Ratio 1.7 TSH Ur Collection Type Clean Catch Urine Color Yellow Urine Clarity Turbid A Urine pH 5.5 Ur Specific [place] 1.020 Urine Protein 1+ A Urine Glucose (UA) Negative Urine Ketones 3+ A Urine Blood Trace Urine Nitrite Positive Urine Bilirubin Negative Urine Urobilinogen (Auto) 2.0 Ur Leukocyte Esterase Positive Urine RBC 24 H Urine WBC 396 H Ur Squamous Epith Cells 4 Ur Transition Epith Cell 1 Urine Bacteria 4+ A Ur Culture Indicated? Yes Urine Opiates Screen Negative Urine Fentanyl Screen Negative Ur Barbiturates Screen Negative U Amphetamin/Meth Scrn Negative U Benzodiazepines Scrn Negative U Cocaine Metab Screen Negative U Marijuana (THC) Screen Negative 03/06/25 04:40 WBC 5.8 RBC 3.84 L Hgb 13.3 Hct 37.9 MCV 99 MCH 34.6 MCHC 35.1 RDW Std Deviation 55.3 H Plt Count 232 Neut % (Auto) 71 Lymph % (Auto) 16 [place] % (Auto) 11 Eos % (Auto) 2 Baso % (Auto) 1 Neut # (Auto) 4.1 Lymph # (Auto) 0.9 L [place] # (Auto) 0.6 Eos # (Auto) 0.1 Baso # (Auto) 0.0 Immature Gran # (Auto) 0.04 H Absolute Nucleated RBC 0.00 Immature Gran % 1 H Nucleated RBC % 0 APTT Sodium 138 Potassium 3.3 L Chloride 97 L Carbon Dioxide 25.2 Anion Gap 16 BUN 5 L Creatinine 0.5 L Estim Creat Clear Calc 71.5 eGFR > 60 BUN/Creatinine Ratio 10 L Glucose 82 Calculated Osmolality 271 L Calcium 8.8 Corrected Calcium Phosphorus 2.6 Magnesium 1.5 L Total Bilirubin AST ALT Alkaline Phosphatase Troponin I B-Natriuretic Peptide Total Protein Albumin Globulin Albumin/Globulin Ratio TSH 1.42 Ur Collection Type Urine Color Urine Clarity Urine pH Ur Specific [place] Urine Protein Urine Glucose (UA) Urine Ketones Urine Blood Urine Nitrite Urine Bilirubin Urine Urobilinogen (Auto) Ur Leukocyte Esterase Urine RBC Urine WBC Ur Squamous Epith Cells Ur Transition Epith Cell Urine Bacteria Ur Culture Indicated? Urine Opiates Screen Urine Fentanyl Screen Ur Barbiturates Screen U Amphetamin/Meth Scrn U Benzodiazepines Scrn U Cocaine Metab Screen U Marijuana (THC) Screen Quality Measures Quality Measures none Advance care planning discussed with:: patient Assessment & Plan Assessment Current Active Medications: Generic Name Dose Route Start Last Admin Trade Name Freq PRN Reason Stop Dose Admin Acetaminophen 650 mg 03/05/25 22:20 Acetaminophen 325 Mg Tablet PO 04/04/25 22:19 Q6H PRN Fever >101.5 Acetaminophen 650 mg 03/05/25 22:20 Acetaminophen 325 Mg Tablet PO 04/04/25 22:19 Q6H PRN PAIN Amlodipine Besylate 5 mg 03/06/25 09:00 03/06/25 09:10 Amlodipine Besylate 5 Mg Tablet PO 04/05/25 08:59 5 mg QDAY DONOVAN Administration Heparin Sodium (Porcine) 5,000 unit 03/06/25 09:00 03/06/25 09:02 Heparin Sod Inj 5000 Unit/Ml Vial SC 03/20/25 08:59 5,000 unit BID DONOVAN Administration Ceftriaxone Sodium/Dextrose 1 gm in 50 mls @ 100 mls/hr 03/06/25 21:00 Rocephin/D5w 1gm Iv Premix IV 03/13/25 20:59 Q24H DONOVAN Lorazepam 0.5 mg 03/06/25 03:12 Lorazepam 0.5 Mg Tablet PO 03/11/25 03:11 Q4HR PRN CIWA Score 2-6 Lorazepam 1 mg 03/06/25 03:12 Lorazepam 0.5 Mg Tablet PO 03/11/25 03:11 Q4HR PRN CIWA SCORE 7-11 Lorazepam 2 mg 03/06/25 03:12 Lorazepam 0.5 Mg Tablet PO 03/11/25 03:11 Q4HR PRN CIWA SCORE 12-15 Magnesium Hydroxide 30 ml 03/06/25 01:04 03/06/25 13:58 Milk Of Magnesia Susp 30 Ml Udc PO 04/05/25 01:03 30 ml Q12HR PRN Administration CONSTIPATION Protocol Magnesium Oxide 400 mg 03/06/25 13:30 03/06/25 13:56 Magnesium Oxide 400 Mg Tablet PO 04/05/25 13:29 400 mg BID DONOVAN Administration Plan 79-year-old female patient with significant history of hypertension, was brought in by EMS for evaluation regarding altered mental status. Admitted for acute encephalopathy found to have UTI. #Acute encephalopathy most likely 05/26 #UTI Patient is AOx1 on initial examination, thought she was in [place] and that the year was 2064. Lives with her daughter, has a assistant service manager assist her in the afternoons. Is unsure of how long she was unconscious for. Is currently still feeling somewhat confused. 03/05 admission UA turbid and showed protein +1, ketones +3, RBC 24, WBC 396, Bacteria +4, Leukocyte Esterase + Dx: -03/05 UCx ordered, showed ___ Plan -Ceftriaxone 1g IV qD (03/05 - #Constipation No BM in 4 days. Abdominal xray moderate amounts of stool, and concern for small bowel ileus. Dx: -03/05 TSH ordered, WNL Rx: -Milk of Magnesia 30mL PO Q12HR PRN #Electrolyte derangements #Hypokalemia #Hypomagnesemia 03/06 potassium 3.3, magnesium 1.5 Rx: -Replete electrolytes as appropriate #CIWA Patient reports drinking a large glass of wine each night for many years, is unsure of how many years but appears for decades. No signs of withdrawal at the moment. Rx: -CIWA protocol #Hx of HTN Patient unsure, but in medications she takes amlodipine 5mg PO Plan: -Amlodipine 5mg PO QD Health Maintenance: Code status: Full DVT prophylaxis: Heparin GI prophylaxis: Famotidine Diet: Cardiac [place]: None Lines: PIV Supplemental O2: NC Disposition: Admit to [facility] for acute encephalopathy Patient seen and reviewed with attending Dr. Berenice Jose DO PGY-1 Attending Provider Attestation/Addendum I have examined the patient, reviewed labs and imaging findings, discussed the case with the resident(s), and reviewed entered orders. I agree with the plan of care as outlined in this note, with these additional summaries/recommendations: Patient seen at bedside. Patient admitted overnight. Patient remains encephalopathic. She is only oriented to self at this time. Etiology for acute encephalopathy most likely infectious and metabolic. We will treat underlying etiologies and monitor for improvement. Continue frequent reorientation and nonpharm measures to prevent delirium. Urinalysis indicative of UTI. Urine culture taken in the emergency room and follow-up results when available. Continue IV antibiotic. Patient was also noted to have severe constipation with significant stool burden on x-ray. We will start aggressive bowel regimen. Continue home antihypertensives. Low suspicion for alcohol withdrawal and will continue to monitor. Please see residents note for additional details and management. Dr. Berenice MD
[2025-03-06] MEDS: cefTRIAXone/D5w 1gm IV premix 1 GM/50 ML BAG IV (20:21)
[2025-03-07] VITALS (9 sets, daily range): BP systolic 97–124; BP diastolic 69–73; PULSE 81–94; RESP 16–94; TEMP 36.1–36.7; O2SAT 93–99; BMI 11.0; BMI 12.0
[2025-03-07 06:27] LABS: Basophils # (Auto) 0.0 Thou/mm3 (0.0-0.2); Basophils % (Auto) 1 % (0-2.5); Eosinophils # (Auto) 0.1 Thou/mm3 (0.0-0.5); Eosinophils % (Auto) 1 % (0-10); Hematocrit 39.5 % (36.0-46.0); Hemoglobin 13.5 g/dL (12.0-16.0); Immature Granulocytes Auto 0.04 Thou/mm3 (0.00-0.00); Lymphocytes # (Auto) 1.0 Thou/mm3 (1.0-4.8); Lymphocytes % (Auto) 13 % (10-50); Mean Corpuscular HGB Conc 34.2 g/dl (31.0-37.0); Mean Corpuscular Hemoglobin 34.4 pg (25.0-35.0); Mean Corpuscular Volume 101 fL (80-100); Monocytes # (Auto) 0.7 Thou/mm3 (0.0-0.8); Monocytes % (Auto) 8 % (0-12); Neutrophils # (Auto) 6.3 Thou/mm3 (1.8-7.7); Neutrophils % (Auto) 77 % (37-80); Nucleated Red Blood Cell # 0.00 Thou/mm3 (0.00-0.00); Nucleated Red Blood Cell % 0 /100 WBC (0); Platelet Count 234 Thou/mm3 (140-440); RDW Standard Deviation 56.2 fL (36.4-46.3); Red Blood Count 3.93 Miln/mm3 (4.00-5.20); White Blood Count 8.2 Thou/mm3 (3.6-11.0)
[2025-03-07 06:51] LABS: BUN/Creatinine Ratio 12 Ratio (12-20); Blood Urea Nitrogen 7 mg/dL (9-23); Calcium 9.2 mg/dL (8.3-10.6); Chloride 98 mMol/L (98-107); Creatinine (Component) 0.6 mg/dL (0.6-1.3); Estimated Creatinine Clearance 59.6 mL/min (>60); Glucose 103 mg/dL (74-106); Magnesium 2.0 mg/dL (1.6-2.6); Osmolality,Calculated 273 (275-295); Phosphorous 2.4 mg/dL (2.4-5.1); Potassium 3.9 mMol/L (3.4-5.1); Sodium 138 mMol/L (136-145); eGFR > 60 See Note
[2025-03-07 07:00] LABS: Carbon Dioxide 26.6 mMol/L (20.0-31.0)
[2025-03-07 07:05] LABS: Anion Gap 13 (7-16)
[2025-03-07] MEDS: HEPARIN SOD INJ 5000 UNIT/ML VIAL SC ×2 (09:35→20:30)
[2025-03-07] MEDS: MAGNESIUM OXIDE 400 MG TABLET PO (09:35)
--- NOTE | 2025-03-07 11:39 | ESPR_ITS ---
<Statement entered by Priyanka Pandey MD - 03/08/25 14:29> Patient was seen and examined by me personally. I have directly supervised and reviewed documentation by the team resident and agree with its findings with any exceptions or additional findings as below. Plan of care was discussed with the attending, Dr. Ng. Priyanka Pandey, PGY-3 Documentation for date of: 03/07/25 Subjective Subjective Interval history: No overnight events. Patient was examined at bedside; they appear A&Ox1 and in NAD. Vitals/labs today significant for WBC 5.8->8.2. Physical exam notable for some abdominal distention but was otherwise benign and unremarkable. Patient still remains encephalopathic today but seems to be improving overall s/p day 3 of Rocephin IV treatment of her UTI. 03/05 UCx showed Klebsiella pneumoniae sensitive to Rocephin. Patient has also not had a BM in over 3 days so she will be started on Miralax. CIWA has been discontinued as patient's history of alcohol use is very mild and she has not been showing any evidence of alcohol withdrawal symptoms. Exam Vital Signs Temp Pulse Resp BP Pulse Ox O2 Del Method 97.2 F 91 22 H 116/70 99 Room Air 03/07/25 08:00 03/07/25 09:34 03/07/25 08:00 03/07/25 09:34 03/07/25 08:00 03/07/25 08:00 Narrative Exam General: A/O x1, no acute distress. Skin: Warm, dry, intact, no obvious rash. Head: Normocephalic, atraumatic. Eyes: EOMI. Anicteric, vision grossly intact. Ears: No ear pain, no ear discharge, Hearing grossly intact. Nose: No nasal discharge. Mouth/Throat: Oral mucosa moist. No obvious lesions in oropharynx. Neck: Neck supple, non-tender, no cervical lymphadenopathy. Cardiovascular: Regular rate and rhythm, no murmur, no JVD or carotid bruits. +S1/S2. Respiratory: Bilateral lungs are clear to auscultation, respirations unlabored, no crackles, no wheezing. No accessory muscle use. Gastrointestinal: Mild abdominal distention. Soft, nontender, no palpable masses. No guarding or rebound tenderness. Peristalsis present. Extremities: Symmetrical, no significant deformities. No edema, no cyanosis, no clubbing. 2+ radial pulse bilaterally, 2+ posterior tibial pulse bilaterally. Neuro: No focal deficits observed. Conversant, moving all extremities. No overt cerebellar signs/incoordination. Psychiatric: Cooperative, appropriate affect. Objective Labs 03/08/25 05:35 03/08/25 05:35 Labs: Laboratory Results - last 24 hr 03/07/25 05:35 WBC 8.2 D RBC 3.93 L Hgb 13.5 Hct 39.5 MCV 101 H MCH 34.4 MCHC 34.2 RDW Std Deviation 56.2 H Plt Count 234 Neut % (Auto) 77 Lymph % (Auto) 13 [place] % (Auto) 8 Eos % (Auto) 1 Baso % (Auto) 1 Neut # (Auto) 6.3 Lymph # (Auto) 1.0 [place] # (Auto) 0.7 Eos # (Auto) 0.1 Baso # (Auto) 0.0 Immature Gran # (Auto) 0.04 H Absolute Nucleated RBC 0.00 Immature Gran % 1 H Nucleated RBC % 0 Sodium 138 Potassium 3.9 D Chloride 98 Carbon Dioxide 26.6 Anion Gap 13 BUN 7 L Creatinine 0.6 Estim Creat Clear Calc 59.6 L eGFR > 60 BUN/Creatinine Ratio 12 Glucose 103 Calculated Osmolality 273 L Calcium 9.2 Phosphorus 2.4 Magnesium 2.0 Quality Measures Quality Measures VTE prophylaxis and none Advance care planning discussed with:: patient Assessment & Plan Assessment Current Active Medications: Generic Name Dose Route Start Last Admin Trade Name Freq PRN Reason Stop Dose Admin Acetaminophen 650 mg 03/05/25 22:20 Acetaminophen 325 Mg Tablet PO 04/04/25 22:19 Q6H PRN Fever >101.5 Acetaminophen 650 mg 03/07/25 08:07 Acetaminophen 325 Mg Tablet PO 04/04/25 22:19 Q6H PRN PAIN 1-4 Amlodipine Besylate 5 mg 03/06/25 09:00 03/07/25 09:34 Amlodipine Besylate 5 Mg Tablet PO 04/05/25 08:59 5 mg QDAY DONOVAN Administration Heparin Sodium (Porcine) 5,000 unit 03/06/25 09:00 03/07/25 09:35 Heparin Sod Inj 5000 Unit/Ml Vial SC 03/20/25 08:59 5,000 unit BID DONOVAN Administration Ceftriaxone Sodium/Dextrose 1 gm in 50 mls @ 100 mls/hr 03/06/25 21:00 03/06/25 20:21 Rocephin/D5w 1gm Iv Premix IV 03/13/25 20:59 100 mls/hr Q24H DONOVAN Administration Lorazepam 0.5 mg 03/06/25 03:12 Lorazepam 0.5 Mg Tablet PO 03/11/25 03:11 Q4HR PRN CIWA Score 2-6 Lorazepam 1 mg 03/06/25 03:12 Lorazepam 0.5 Mg Tablet PO 03/11/25 03:11 Q4HR PRN CIWA SCORE 7-11 Lorazepam 2 mg 03/06/25 03:12 Lorazepam 0.5 Mg Tablet PO 03/11/25 03:11 Q4HR PRN CIWA SCORE 12-15 Magnesium Hydroxide 30 ml 03/06/25 01:04 03/06/25 13:58 Milk Of Magnesia Susp 30 Ml Udc PO 04/05/25 01:03 30 ml Q12HR PRN Administration CONSTIPATION Protocol Magnesium Oxide 400 mg 03/06/25 13:30 03/07/25 09:35 Magnesium Oxide 400 Mg Tablet PO 04/05/25 13:29 400 mg BID DONOVAN Administration Plan 79-year-old female patient with significant history of hypertension, was brought in by EMS for evaluation regarding altered mental status. Admitted for acute encephalopathy found to have UTI. #Acute encephalopathy most likely 2/2 #UTI Patient is AOx1 on initial examination, thought she was in [place] and that the year was 2064. Lives with her daughter, has a electrician radio assist her in the afternoons. Is unsure of how long she was unconscious for 03/05 admission UA turbid and showed protein +1, ketones +3, RBC 24, WBC 396, Bacteria +4, Leukocyte Esterase + Dx: -03/05 UCx ordered, showed Klebsiella pneumoniae sensitive to ceftriaxone Plan -Ceftriaxone 1g IV qD [03/05--] #Constipation No BM for over 3 days. Abdominal xray moderate amounts of stool, and concern for small bowel ileus. Dx: -03/05 TSH ordered, WNL Rx: -Milk of Magnesia 30mL PO Q12HR PRN -Miralax 17 g PO qD #Electrolyte derangements #Hypokalemia #Hypomagnesemia 03/06 potassium 3.3, magnesium 1.5 Rx: -Replete electrolytes as appropriate #CIWA Patient reports drinking a large glass of wine each night for many years, is unsure of how many years but appears for decades. No signs of withdrawal at the moment. Rx: -CIWA protocol discontinued as of 03/07 #Hx of HTN Patient unsure, but in medications she takes amlodipine 5mg PO Plan: -Amlodipine 5mg PO QD Health Maintenance: Code status: Full DVT prophylaxis: Heparin GI prophylaxis: Famotidine Diet: Cardiac [place]: None Lines: PIV Supplemental O2: NC Disposition: Admit to [facility] for acute encephalopathy Patient seen and reviewed with attending Dr. Berenice Jose DO PGY-1 Attending Provider Attestation/Addendum I have examined the patient, reviewed labs and imaging findings, discussed the case with the resident(s), and reviewed entered orders. I agree with the plan of care as outlined in this note, with these additional summaries/recommendations: Patient seen at bedside. No acute overnight events. Yesterday patient was ANO x 1. Today patient is ANO x 2 with some improvement in her encephalopathy. Etiology for encephalopathy continues to be infectious and metabolic etiologies. We will continue to treat underlying causes and monitor for improvement/resolution. Continue frequent reorientation and nonpharm measures to prevent delirium. Urine culture pending and continue IV antibiotics for urinary tract infection. Significant stool burden seen on admission imaging and aggressive bowel regimen started today. Continue home antihypertensives. Please see residents note for additional details and management. Dr. Berenice MD
--- NOTE | 2025-03-07 13:46 | PC.CC ---
PASRR Level 1 complete and downloaded; Level 2 not required.
--- NOTE | 2025-03-07 14:48 | PC.SS ---
Pt accepted to [facility] in [place], attempted to reach dtr DtrMary [phone] to update. No answer.
--- NOTE | 2025-03-07 14:49 | PC.SS ---
Rounding: on iv abx, dc plan Michael
[2025-03-07] MEDS: POLYETHYLENE GLYCOL 17 GM PACKET PO (18:11)
[2025-03-07] MEDS: cefTRIAXone/D5w 1gm IV premix 1 GM/50 ML BAG IV (20:30)
[2025-03-08] VITALS (14 sets, daily range): BP systolic 109–137; BP diastolic 64–90; PULSE 66–107; RESP 16–98; TEMP 36.1–36.5; O2SAT 90–99
[2025-03-08 06:14] LABS: Basophils # (Auto) 0.0 Thou/mm3 (0.0-0.2); Basophils % (Auto) 1 % (0-2.5); Eosinophils # (Auto) 0.1 Thou/mm3 (0.0-0.5); Eosinophils % (Auto) 2 % (0-10); Hematocrit 36.0 % (36.0-46.0); Hemoglobin 12.2 g/dL (12.0-16.0); Immature Granulocytes Auto 0.03 Thou/mm3 (0.00-0.00); Lymphocytes # (Auto) 1.3 Thou/mm3 (1.0-4.8); Lymphocytes % (Auto) 22 % (10-50); Mean Corpuscular HGB Conc 33.9 g/dl (31.0-37.0); Mean Corpuscular Hemoglobin 34.4 pg (25.0-35.0); Mean Corpuscular Volume 101 fL (80-100); Monocytes # (Auto) 0.8 Thou/mm3 (0.0-0.8); Monocytes % (Auto) 13 % (0-12); Neutrophils # (Auto) 3.5 Thou/mm3 (1.8-7.7); Neutrophils % (Auto) 61 % (37-80); Nucleated Red Blood Cell # 0.00 Thou/mm3 (0.00-0.00); Nucleated Red Blood Cell % 0 /100 WBC (0); Platelet Count 196 Thou/mm3 (140-440); RDW Standard Deviation 55.6 fL (36.4-46.3); Red Blood Count 3.55 Miln/mm3 (4.00-5.20); White Blood Count 5.7 Thou/mm3 (3.6-11.0)
[2025-03-08 06:50] LABS: Anion Gap 13 (7-16); BUN/Creatinine Ratio 13 Ratio (12-20); Blood Urea Nitrogen 8 mg/dL (9-23); Calcium 9.0 mg/dL (8.3-10.6); Carbon Dioxide 26.3 mMol/L (20.0-31.0); Chloride 99 mMol/L (98-107); Creatinine (Component) 0.6 mg/dL (0.6-1.3); Estimated Creatinine Clearance 59.6 mL/min (>60); Glucose 103 mg/dL (74-106); Magnesium 1.8 mg/dL (1.6-2.6); Osmolality,Calculated 273 (275-295); Phosphorous 2.9 mg/dL (2.4-5.1); Potassium 3.8 mMol/L (3.4-5.1); Sodium 138 mMol/L (136-145); eGFR > 60 See Note
--- NOTE | 2025-03-08 09:17 | PC.SS ---
Addendum entered by RADHA Reeves 03/08/25 09:52: ASW completed file exchange with [facility]. Original Note: ASW placed phone call to [facility] to confirm if they are able to take patient today, Gio with admission stated yes but they need PASSR and d/c order before patient can be transported to facility. ASW attempted to contact patients dtr to complete PASSR questions, dtr not available, ASW left with call back number.
[2025-03-08] MEDS: MAGNESIUM OXIDE 400 MG TABLET PO ×2 (09:21→20:08)
[2025-03-08] MEDS: POLYETHYLENE GLYCOL 17 GM PACKET PO (09:21)
[2025-03-08] MEDS: HEPARIN SOD INJ 5000 UNIT/ML VIAL SC ×2 (09:21→20:08)
--- NOTE | 2025-03-08 10:20 | PC.SS ---
patients dtr returned phone call and confirmed d/c plan to [facility].
[2025-03-08] MEDS: LACTULOSE SYRUP 20 GM/30 ML UDC 30 GM PO (13:35)
--- NOTE | 2025-03-08 17:41 | PD.RESPRO ---
Documentation for date of: 03/08/25 Subjective Subjective Interval history: Patient is seen and examined at bedside. No acute overnight events. Still patient appears to be fatigued, lethargic but able to answer the questions appropriately Vitals are stable. Labs done this morning did not show any significant abnormality. Final urine cultures came back positive for Klebsiella pneumonia, and will continue ceftriaxone for now Patient will be discharged tomorrow on oral antibiotics back to her facility Exam Vital Signs Temp Pulse Resp BP Pulse Ox O2 Del Method 97.6 F 82 18 126/90 H 98 Room Air 03/08/25 16:00 03/08/25 16:00 03/08/25 16:00 03/08/25 16:00 03/08/25 16:00 03/08/25 16:00 Narrative Exam General: no acute distress. Skin: Warm, dry, intact, no obvious rash. Head: Normocephalic, atraumatic. Eyes: EOMI. Anicteric, vision grossly intact. Ears: No ear pain, no ear discharge, Hearing grossly intact. Nose: No nasal discharge. Mouth/Throat: Oral mucosa moist. No obvious lesions in oropharynx. Neck: Neck supple, non-tender, no cervical lymphadenopathy. Cardiovascular: Regular rate and rhythm, no murmur, no JVD or carotid bruits. +S1/S2. Respiratory: Bilateral lungs are clear to auscultation, respirations unlabored, no crackles, no wheezing. No accessory muscle use. Gastrointestinal: Soft, nontender, no palpable masses. No guarding or rebound tenderness. Peristalsis present. Extremities: Symmetrical, no significant deformities. No edema, no cyanosis, no clubbing. 2+ radial pulse bilaterally, 2+ posterior tibial pulse bilaterally. Neuro: No focal deficits observed. Conversant, moving all extremities. No overt cerebellar signs/incoordination. Psychiatric: Cooperative, appropriate affect. Objective Labs 03/08/25 05:35 03/08/25 05:35 Labs: Laboratory Results - last 24 hr 03/08/25 05:35 WBC 5.7 RBC 3.55 L Hgb 12.2 Hct 36.0 MCV 101 H MCH 34.4 MCHC 33.9 RDW Std Deviation 55.6 H Plt Count 196 D Neut % (Auto) 61 Lymph % (Auto) 22 [place] % (Auto) 13 H Eos % (Auto) 2 Baso % (Auto) 1 Neut # (Auto) 3.5 Lymph # (Auto) 1.3 [place] # (Auto) 0.8 Eos # (Auto) 0.1 Baso # (Auto) 0.0 Immature Gran # (Auto) 0.03 H Absolute Nucleated RBC 0.00 Immature Gran % 1 H Nucleated RBC % 0 Sodium 138 Potassium 3.8 Chloride 99 Carbon Dioxide 26.3 Anion Gap 13 BUN 8 L Creatinine 0.6 Estim Creat Clear Calc 59.6 L eGFR > 60 BUN/Creatinine Ratio 13 Glucose 103 Calculated Osmolality 273 L Calcium 9.0 Phosphorus 2.9 Magnesium 1.8 Quality Measures Quality Measures VTE prophylaxis and none Advance care planning discussed with:: patient Assessment & Plan Assessment Current Active Medications: Generic Name Dose Route Start Last Admin Trade Name Freq PRN Reason Stop Dose Admin Acetaminophen 650 mg 03/05/25 22:20 Acetaminophen 325 Mg Tablet PO 04/04/25 22:19 Q6H PRN Fever >101.5 Acetaminophen 650 mg 03/07/25 08:07 Acetaminophen 325 Mg Tablet PO 04/04/25 22:19 Q6H PRN PAIN 1-4 Amlodipine Besylate 5 mg 03/06/25 09:00 03/08/25 09:21 Amlodipine Besylate 5 Mg Tablet PO 04/05/25 08:59 5 mg QDAY DONOVAN Administration Heparin Sodium (Porcine) 5,000 unit 03/06/25 09:00 03/08/25 09:21 Heparin Sod Inj 5000 Unit/Ml Vial SC 03/20/25 08:59 5,000 unit BID DONOVAN Administration Ceftriaxone Sodium/Dextrose 1 gm in 50 mls @ 100 mls/hr 03/06/25 21:00 03/07/25 20:30 Rocephin/D5w 1gm Iv Premix IV 03/13/25 20:59 100 mls/hr Q24H DONOAVN Administration Lactulose 30 gm 03/08/25 14:00 03/08/25 13:35 Lactulose Syrup 20 Gm/30 Ml Udc PO 04/07/25 13:59 30 gm TID DONOVAN Administration Protocol Magnesium Hydroxide 30 ml 03/06/25 01:04 03/06/25 13:58 Milk Of Magnesia Susp 30 Ml Udc PO 04/05/25 01:03 30 ml Q12HR PRN Administration CONSTIPATION Protocol Magnesium Oxide 400 mg 03/06/25 13:30 03/08/25 09:21 Magnesium Oxide 400 Mg Tablet PO 04/05/25 13:29 400 mg BID DONOVAN Administration Polyethylene Glycol 17 gm 03/07/25 13:45 03/08/25 09:21 Polyethylene Glycol 17 Gm Packet PO 04/06/25 13:44 17 gm QDAY DONOVAN Administration Plan 79-year-old female patient with significant history of hypertension, was brought in by EMS for evaluation regarding altered mental status. Admitted for acute encephalopathy found to have UTI. #Acute encephalopathy most likely 2/2, resolved #UTI Patient is AOx1 on initial examination, thought she was in [place] and that the year was 2064. Lives with her daughter, has a centerless grinder operator assist her in the afternoons. Is unsure of how long she was unconscious for 03/05 admission UA turbid and showed protein +1, ketones +3, RBC 24, WBC 396, Bacteria +4, Leukocyte Esterase + Dx: -03/05 UCx ordered, showed Klebsiella pneumoniae sensitive to ceftriaxone Plan -Ceftriaxone 1g IV qD [03/05--] #Constipation No BM for over 3 days. Abdominal xray moderate amounts of stool, and concern for small bowel ileus. Dx: -03/05 TSH ordered, WNL Rx: -Milk of Magnesia 30mL PO Q12HR PRN -Miralax 17 g PO qD -Started on lactulose 30gm thrice daily #Electrolyte derangements #Hypokalemia, resolved #Hypomagnesemia, resolved 03/06 potassium 3.3, magnesium 1.5 Rx: -Replete electrolytes as appropriate #CIWA Patient reports drinking a large glass of wine each night for many years, is unsure of how many years but appears for decades. No signs of withdrawal at the moment. Rx: -CIWA protocol discontinued as of 03/07 #Hx of HTN Patient unsure, but in medications she takes amlodipine 5mg PO Plan: -Amlodipine 5mg PO QD Health Maintenance: Code status: Full DVT prophylaxis: Heparin GI prophylaxis: Famotidine Diet: Cardiac [place]: None Lines: PIV Supplemental O2: NC Disposition: Admit to [facility] for acute encephalopathy Patient plan of care was discussed with the attending physician, Dr. Berenice Abel, PGY2 Attending Provider Attestation/Addendum I have examined the patient, reviewed labs and imaging findings, discussed the case with the resident(s), and reviewed entered orders. I agree with the plan of care as outlined in this note, with these additional summaries/recommendations: Patient seen at bedside. No acute overnight events. Patient's encephalopathy continues to improve although not yet resolved. Patient will remain hospitalized for an additional day of IV antibiotic for urinary tract infection and resolution of encephalopathy. Continue frequent reorientation and nonpharm measures to prevent delirium. Aggressive bowel regimen was started yesterday for significant stool burden seen on admission imaging although patient has still not had a bowel movement. We will adjust laxative regimen today. Patient updated on the plan. Please see residents note for additional details and management. Dr. Berenice MD
--- NOTE | 2025-03-08 17:47 | XR_ITS ---
Examination: Abdomen AP single view Technique: AP portable supine abdomen, single view Exam date and time: March 08, 2025, 181 hours INDICATIONS: Constipation today. FINDINGS: Mild to moderate colonic ileus Minimal air distended small bowel in the left abdomen No obstruction Severe osteopenia with kyphoplasties mid lumbar vertebral bodies IMPRESSION: Mild to moderate colonic ileus
[2025-03-08] MEDS: LACTULOSE SYRUP 20 GM/30 ML UDC 45 GM PO ×2 (18:32→23:54)
[2025-03-08] MEDS: cefTRIAXone/D5w 1gm IV premix 1 GM/50 ML BAG IV (20:09)
[2025-03-09] VITALS (11 sets, daily range): BP systolic 119–142; BP diastolic 71–82; PULSE 73–110; RESP 16–23; TEMP 36.2–37.1; O2SAT 93–99
[2025-03-09 05:58] LABS: Magnesium 2.0 mg/dL (1.6-2.6); Phosphorous 3.8 mg/dL (2.4-5.1)
[2025-03-09 09:11] LABS: Albumin, Serum 3.8 gm/dL (3.4-4.8); Anion Gap 17 (7-16); BUN/Creatinine Ratio 9 Ratio (12-20); Blood Urea Nitrogen 7 mg/dL (9-23); Calcium 9.6 mg/dL (8.3-10.6); Calcium (Corrected) 9.8 mg/dL (8.5-10.1); Carbon Dioxide 21.3 mMol/L (20.0-31.0); Chloride 105 mMol/L (98-107); Creatinine (Component) 0.8 mg/dL (0.6-1.3); Estimated Creatinine Clearance 44.7 mL/min (>60); Glucose 101 mg/dL (74-106); Osmolality,Calculated 282 (275-295); Potassium 3.4 mMol/L (3.4-5.1); Sodium 143 mMol/L (136-145); eGFR > 60 See Note
[2025-03-09] MEDS: POLYETHYLENE GLYCOL 17 GM PACKET PO (09:28)
[2025-03-09] MEDS: MAGNESIUM OXIDE 400 MG TABLET PO ×2 (09:29→20:21)
[2025-03-09] MEDS: HEPARIN SOD INJ 5000 UNIT/ML VIAL SC ×2 (09:29→20:21)
--- NOTE | 2025-03-09 11:37 | ESPR_ITS ---
Documentation for date of: 03/09/25 Subjective Subjective Interval history: No overnight events. Patient was examined at bedside; they appear A&Ox1 and in NAD. Today, she seems more lethargic than yesterday and has reportedly been eating very little for the past few days. Vitals/labs today significant for anion gap 13->17, creatinine 0.6->0.8 (thought to be likely 2/2 poor PO intake of H2O). Physical exam non-contributory. Patient continued to appear encephalopathic today without any improvement despite continued antibiotic treatment of her UTI. This was attributed to possible hospital-acquired delirium or waxing and waning dementia. Patient's neighbor was present today at bedside and reported that patient is normally A&Ox3 and completely lucid at mental baseline. However, patient had a rapid response called today around 6 PM for increased lethargy and somnolence. At the time, blood glucose levels were in the 100s, BP was 120/80s, SpO2 was 98% on room air, and patient did not seem to have any focal neurological deficits. Prior to this event, a CT head w/o contrast was ordered and thiamine 100 mg IV qD and IV fluids @ 75 cc/hr were started. Tele- Neurology was consulted after the rapid response and recommended CTA head/neck, head MRI, high-dose thiamine for the first few days, and aspirin. At this time, the underlying etiology of patient's continued encephalopathy and new-onset lethargy and somnolence is unclear. Exam Vital Signs Temp Pulse Resp BP Pulse Ox O2 Del Method 98.7 F 91 22 H 132/77 H 95 Room Air 03/09/25 07:46 03/09/25 09:28 03/09/25 07:46 03/09/25 09:28 03/09/25 07:46 03/09/25 04:00 Narrative Exam General: Lethargic and somnolent. Skin: Warm, dry, intact, no obvious rash. Head: Normocephalic, atraumatic. Eyes: EOMI. Anicteric, vision grossly intact. Ears: No ear pain, no ear discharge, Hearing grossly intact. Nose: No nasal discharge. Mouth/Throat: Oral mucosa moist. No obvious lesions in oropharynx. Neck: Neck supple, non-tender, no cervical lymphadenopathy. Cardiovascular: Regular rate and rhythm, no murmur, no JVD or carotid bruits. +S1/S2. Respiratory: Bilateral lungs are clear to auscultation, respirations unlabored, no crackles, no wheezing. No accessory muscle use. Gastrointestinal: Soft, nontender, no palpable masses. No guarding or rebound tenderness. Peristalsis present. Extremities: Symmetrical, no significant deformities. No edema, no cyanosis, no clubbing. 2+ radial pulse bilaterally, 2+ posterior tibial pulse bilaterally. Neuro: Alert and oriented x 1. No focal deficits observed. No overt cerebellar signs/incoordination. Psychiatric: Cooperative, appropriate affect. Objective Labs 03/10/25 04:38 03/10/25 04:38 Labs: Laboratory Results - last 24 hr 03/09/25 04:49 Sodium 143 Potassium 3.4 Chloride 105 Carbon Dioxide 21.3 Anion Gap 17 H BUN 7 L Creatinine 0.8 Estim Creat Clear Calc 44.7 L eGFR > 60 BUN/Creatinine Ratio 9 L Glucose 101 Calculated Osmolality 282 Calcium 9.6 Corrected Calcium 9.8 Phosphorus 3.8 Magnesium 2.0 Albumin 3.8 Quality Measures Quality Measures VTE prophylaxis and none Advance care planning discussed with:: patient Assessment & Plan Assessment Current Active Medications: Generic Name Dose Route Start Last Admin Trade Name Freq PRN Reason Stop Dose Admin Acetaminophen 650 mg 03/05/25 22:20 Acetaminophen 325 Mg Tablet PO 04/04/25 22:19 Q6H PRN Fever >101.5 Acetaminophen 650 mg 03/07/25 08:07 Acetaminophen 325 Mg Tablet PO 04/04/25 22:19 Q6H PRN PAIN 1-4 Amlodipine Besylate 5 mg 03/06/25 09:00 03/09/25 09:28 Amlodipine Besylate 5 Mg Tablet PO 04/05/25 08:59 5 mg QDAY DONOVAN Administration Heparin Sodium (Porcine) 5,000 unit 03/06/25 09:00 03/09/25 09:29 Heparin Sod Inj 5000 Unit/Ml Vial SC 03/20/25 08:59 5,000 unit BID DONOVAN Administration Ceftriaxone Sodium/Dextrose 1 gm in 50 mls @ 100 mls/hr 03/06/25 21:00 03/08/25 20:09 Rocephin/D5w 1gm Iv Premix IV 03/13/25 20:59 100 mls/hr Q24H DONOVAN Administration Lactulose 45 gm 03/08/25 18:00 03/09/25 05:52 Lactulose Syrup 20 Gm/30 Ml Udc PO 04/07/25 17:59 Not Given Q6HR DONOVAN Protocol Magnesium Hydroxide 30 ml 03/06/25 01:04 03/06/25 13:58 Milk Of Magnesia Susp 30 Ml Udc PO 04/05/25 01:03 30 ml Q12HR PRN Administration CONSTIPATION Protocol Magnesium Oxide 400 mg 03/06/25 13:30 03/09/25 09:29 Magnesium Oxide 400 Mg Tablet PO 04/05/25 13:29 400 mg BID DONOVAN Administration Polyethylene Glycol 17 gm 03/07/25 13:45 03/09/25 09:28 Polyethylene Glycol 17 Gm Packet PO 04/06/25 13:44 17 gm QDAY DONOVAN Administration Plan 79-year-old female patient with significant history of hypertension, was brought in by EMS for evaluation regarding altered mental status. Admitted for acute encephalopathy found to have UTI. #Acute encephalopathy, 05/26 #UTI vs. hospital-acquired delirium vs. dementia (waxing and waning) vs. CVA vs. Wernicke's encephalopathy Patient was AOx1 on initial examination, thought she was in [place] and that the year was 2064. Lives with her daughter, has a cherry picker operator assist her in the afternoons. Is unsure of how long she was unconscious for 03/05 admission UA turbid and showed protein +1, ketones +3, RBC 24, WBC 396, Bacteria +4, Leukocyte Esterase + On 03/09, a rapid response was called due to new-onset somnolence and lethargy The underlying etiology of both patient's continued encephalopathy and new lethargy/somnolence Dx: -03/05 UCx ordered, showed Klebsiella pneumoniae sensitive to ceftriaxone -03/[address] ordered, negative -03/09 head neck CTA ordered, negative -03/09 head MRI w/o contrast ordered, showed ___ Rx: -IV LR fluid @ 75 cc/hr -Aspirin 300 mg [place] qD -Thiamine 100 mg IV qD (with thiamine 500 mg IV qD) -Ceftriaxone 1g IV qD [03/05--] for treatment of UTI -Correct electrolytes as appropriate -Tele-Neurology was consulted, appreciate recommendations #Constipation, resolved No BM for over 3 days. Abdominal xray moderate amounts of stool, and concern for small bowel ileus. Now having BMs Dx: -03/05 TSH ordered, WNL Rx: -Milk of Magnesia 30mL PO Q12HR PRN -Miralax 17 g PO qD -Started on lactulose 30gm thrice daily #Electrolyte derangements #Hypokalemia, resolved #Hypomagnesemia, resolved 03/06 potassium 3.3, magnesium 1.5 Rx: -Replete electrolytes as appropriate #CIWA Patient reports drinking a large glass of wine each night for many years, is unsure of how many years but appears for decades. No signs of withdrawal at the moment. Rx: -CIWA protocol discontinued as of 03/07 #Hx of HTN Patient unsure, but in medications she takes amlodipine 5mg PO Plan: -Amlodipine 5mg PO qD Health Maintenance: Code status: Full DVT prophylaxis: Heparin GI prophylaxis: Famotidine Diet: Cardiac [place]: None Lines: PIV Supplemental O2: NC Disposition: Admit to [facility] for acute encephalopathy Patient plan of care was discussed with the attending physician, Dr. Berenice Jose, DO PGY-1 Attending Provider Attestation/Addendum I have examined the patient, reviewed labs and imaging findings, discussed the case with the resident(s), and reviewed entered orders. I agree with the plan of care as outlined in this note, with these additional summaries/recommendations: Patient seen at bedside. No acute overnight events. Patient's encephalopathy has improved over the last couple of days although patient appears somnolent this morning. We have made multiple attempts to reach patient's daughter for further collateral history on patient's mental status. Suspect patient's waxing and waning mentation is most likely secondary to hospital-acquired delirium at this point. Pending dispo. Patient is from home and in-house PT recommends SNF. We will follow-up with professor of social work and family for placement. Patient will remain hospitalized for an additional day of IV antibiotic for urinary tract infection and resolution of encephalopathy. Continue frequent reorientation and nonpharm measures to prevent delirium. Aggressive bowel regimen was started yesterday for significant stool burden seen on admission and patient had 2 BM yesterday. We will adjust laxative regimen today. Patient updated on the plan. Please see residents note for additional details and management. Dr. Berenice MD
[2025-03-09] MEDS: LACTULOSE SYRUP 20 GM/30 ML UDC 45 GM PO ×2 (11:44→23:05)
[2025-03-09 11:49] LABS: Lactate (Lactic Acid) 1.7 mMol/L (0.4-2.0)
--- NOTE | 2025-03-09 16:22 | PC.SS ---
Rounding: doctors would like to speak to daughter to determine if patient is at baseline.
--- NOTE | 2025-03-09 17:49 | PC.NURSE ---
ASSISTANT PROFESSOR OF ECONOMICS CALLED PT MORE LETHARGIC THAN EARLYIER IN THE AFTERNOON PER MICHELL FERNANDES PT NOT OPENING EYES OR RESPONDING TO QUESTIONS USUAL. MD WOLFF ORDER FOR HEAD CT. STROKE ALERT CALLED. PT TO CT
--- NOTE | 2025-03-09 17:51 | XR_ITS ---
Examination: CT brain head without contrast. 2-D sagittal coronal reconstructions Date and time of exam: March 09, 2025, 1800 hours, comparison March 05, 2025 INDICATION: Stroke alert, onset focal neurologic deficit today including altered mental status CTDI: vol (mGy): 47.8 DLP: (mGycm): 966 Technique: Multiple CT axial sections of the brain have been obtained, 5 mm slice thickness. Contrast has not been administered. 2-D sagittal, coronal reconstructions have been obtained Low dose protocols were performed. One or more of the following dose reduction techniques were used; automated exposure control, adjustment of the mA and/or KV according to patient size, use of iterative reconstruction technique. Findings: No significant ventricular enlargement. Intra-axial or extra-axial hemorrhage density is not seen. No mass effect or midline shift Basal cisterns are not remarkable. Fourth ventricle is midline. Cranial vault intact. Impression: No interval acute hemorrhage, mass effect or midline shift
--- NOTE | 2025-03-09 18:11 | XR_ITS ---
Examination: CTA carotids with intravenous contrast CTA brain, head with intravenous contrast. 2-D sagittal, coronal reconstructions. 3-D reconstructions. Exam date and time: March 09, 2025, 1826 hours INDICATIONS: Stroke alert, onset focal neurologic deficit including altered mental status and weakness today CTDI: vol (mGy) 18.3 DLP: (mGycm) 442 Technique: Multiple CTA axial brain, head carotid images post intravenous contrast injection 75 cc, [id number]. 2-D sagittal, coronal reconstructions. 3-D reconstructions, 3-D post processing including vascular maximum intensity projection images. Low dose protocols were performed. One or more of the following dose reduction techniques were used; automated exposure control, adjustment of the mA and/or KV according to patient size, use of iterative reconstruction technique. Findings: No significant common carotid carotid bifurcation or internal carotid artery stenoses Dominant left vertebral artery in the neck with no critical stenoses Intracranial vertebral arteries basilar artery posterior cerebral branches fill with no large vessel occlusions Petrous juxtasellar portions internal carotid arteries intact No large vessel occlusions involving M1 segments middle cerebral arteries middle cerebral artery trifurcation vessels or anterior cerebral arteries IMPRESSION: No significant neck arterial stenoses No cerebral large vessel arterial occlusions or thrombus
[2025-03-09] MEDS: THIAMINE INJ 100 MG/ML VIAL 2 ML IVP (18:45)
[2025-03-09] MEDS: RINGERS LACTATED 1000 ML 1,000 ML 75 ML IV (18:45)
[2025-03-09] MEDS: POTASSIUM CHL 10 mEq IVPB 10 MEQ/100 ML BAG 100 MEQ IV ×2 (18:45→20:09)
--- NOTE | 2025-03-09 18:47 | PD.NEUROCONS ---
History of Present Illness Data of Consult Requesting Physician: Zachariah Ng MD Primary Care Provider: Physician No Primary/Family Consult Narrative cc:: cc: Zachariah Ng MD Meds Home Medications and Allergies Home Medications ?Medication ?Instructions ?Recorded ?Confirmed ?Type amlodipine 5 mg tablet 1 tab PO DAILY 12/15/21 03/05/25 History Held on 03/05/25. Instructions: Doctor's Order atorvastatin 40 mg tablet 1 tab PO HS 12/15/21 03/05/25 History Held on 03/05/25. Instructions: Doctor's Order gabapentin 300 mg capsule 1 cap PO TID 12/15/21 03/05/25 History Held on 03/05/25. Instructions: Doctor's Order hydrocodone 5 mg-acetaminophen 325 1 tab PO BID 12/15/21 03/05/25 History mg tablet Held on 12/15/21. Instructions: Resume on 12/16/21. Allergies Allergy/AdvReac Type Severity Reaction Status Date / Time doxycycline Allergy Severe Hives Verified 12/22/21 09:49 Sulfa (Sulfonamide Allergy Intermediate ICHY Verified 12/22/21 09:49 Antibiotics) Exam - Neurology Vital Signs Temp Pulse Resp BP Pulse Ox O2 Del Method 97.3 F 79 22 H 121/71 95 Room Air 03/09/25 16:00 03/09/25 16:00 03/09/25 16:00 03/09/25 16:00 03/09/25 16:00 03/09/25 11:57 Results Labs 03/08/25 05:35 03/09/25 04:49 Labs: BMP 03/09/25 04:49 Sodium 143 Potassium 3.4 Chloride 105 Carbon Dioxide 21.3 BUN 7 L Creatinine 0.8 Glucose 101 Calcium 9.6 Liver Function 03/09/25 Range/Units 04:49 Albumin 3.8 (3.4-4.8) gm/dL Impressions Impression: [facility] Patient Name:???Inessa Laguerre Date of :???1945 Identification Number:??? Date of Service:???03/09/2025 17:53:31 Diagnosis:?R41.82 - Altered mental status, unspecified Impression: ?PT is an 79 yo female with HTN, osteoporosis who was admitted on 03/05 when she was found down by her caregiver with AMS now with increased lethargy noticed in the last hour. Since pt was admitted with AMS and had not returned to baseline, she was felt to be outside the window for iv-thrombolytics. CTA head and neck is pending, will follow-up with the final results. ? ?Differential includes stroke vs a toxic-metabolic encephapathy. ? ?Recommend MRI brain without contrast to rule out stroke as well as an ammonia level. ? ?Can start pt on ASA 300 mg CO daily for now or 81 mg daily once she is able to take PO. ? ?Can start pt on high dose Thiamine 500 mg IV three time a day x 3 days followed by 250 mg IV daily x 3-5 days then 100 mg PO daily . ? Our recommendations are outlined below. Recommendations: ? Stroke/Telemetry Floor ? Neuro Checks ? Bedside Swallow Eval ? DVT Prophylaxis ? IV Fluids, Normal Saline ? Head of Bed 30 Degrees ? Euglycemia and Avoid Hyperthermia (PRN Acetaminophen) ?MRI brain without contrast ?Ammonia ?Start pt on ASA 300 mg CO daily for now or 81 mg daily once she is able to take PO. ?Can start pt on high dose Thiamine 500 mg IV three time a day x 3 days followed by 250 mg IV daily x 3-5 days then 100 mg PO daily . Sign Out: ? Discussed with Emergency Department Provider Advanced Imaging: Advanced imaging has been ordered. Results pending. Metrics: Last Known Well: Unknown Initial Response Time: 03/09/2025 17:54:57Symptoms: AMS. Initial patient interaction: 03/09/2025 18:03:21 NIHSS Assessment Completed: 03/09/2025 18:06:50Patient is not a candidate for Thrombolytic. Thrombolytic Medical Decision: 03/09/2025 18:06:52Patient was not deemed candidate for Thrombolytic because of following reasons: LKW outside 4.[address] Head: I personally reviewed all the CT images that were available to me and it showed: no acute ischemic changes, no ICH Primary Provider Notified of Diagnostic Impression and Management Plan on: 03/09/2025 18:10:03 Spoke With: Dr Hilda Jose MD Able to Reach 03/09/2025 18:10:03 History of Present Illness:Patient is a 79 year old Female. Inpatient stroke alert was called for symptoms of AMS. PT is an 79 yo female with HTN, osteoporosis who was admitted on 03/05 when she was found down by her caregiver with AMS. Family reported confusion [address] head was unremarkable. She was found to have a UTI. She has been placed on ABX and per noted has improved but not back to baseline (oriented x 1 today ). Pt in the last hour has been noted to be more lethargic, only wakes up briefly to noxious stimuli and not answering questions. No obvious focal weakness noted. PT has been monitored for alcohol withdrawal since this admission since she reported drinking one glass of alcohol every night. Past Medical History: ?Hypertension Medications: No Anticoagulant use? No Antiplatelet use Reviewed EMR for current medications Other Medications Pertinent To Assessment Include: On Heparin for DVT prophylaxis. Allergies:? Reviewed Social History: Alcohol Use: Yes Family History: There is no family history of premature cerebrovascular disease pertinent to this consultation ROS :?ROS Cannot Be Obtained Because:? Patient Is Confused Past Surgical History: There Is No Surgical History Contributory To Today?s Visit Examination: BP(121/71),?Pulse(79), 1A: Level of Consciousness - Requires repeated stimulation to arouse?+ 2 1B: Ask Month and Age - Could Not Answer Either Question Correctly?+ 2 1C: Blink Eyes & Squeeze Hands - Performs 0 Tasks?+ 2 2: Test Horizontal Extraocular Movements - Normal?+ 0 3: Test Visual Brown - No Visual Loss?+ 0 4: Test Facial Palsy (Use Grimace if Obtunded) - Normal symmetry?+ 0 5A: Test Left Arm Motor Drift - No Drift for 10 Seconds?+ 0 5B: Test Right Arm Motor Drift - No Effort Against [place]?+ 3 6A: Test Left Leg Motor Drift - No Effort Against [place]?+ 3 6B: Test Right Leg Motor Drift - No Drift for 5 Seconds?+ 0 7: Test Limb Ataxia (FNF/Heel-Infante) - No Ataxia?+ 0 8: Test Sensation - Normal; No sensory loss?+ 0 9: Test Language/Aphasia - Mute/Global Aphasia: No Usable Speech/Auditory Comprehension?+ 3 10: Test Dysarthria - Mute/Anarthric?+ 2 11: Test Extinction/Inattention - No abnormality?+ 0 NIHSS Score:?17 NIHSS Free Text :?PT will open eyes to noxious stimuli, did try to speak when asked her name, but speech was incomprehensible, made no other attempt to speak. Did not follow commands. She as able to keep both arms up against gravity with no drift when passively raised and withdrew both feet to command. Pre-Morbid Modified [place] Scale: Unable to assess Spoke with :?Dr Hilda Jose MD This consult was conducted in real time using interactive audio and video technology. Patient was informed of the technology being used for this visit and agreed to proceed. Patient located in hospital and provider located at home/office setting. Patient is being evaluated for possible acute neurologic impairment and high probability of imminent or life-threatening deterioration. I spent total of 40 minutes providing care to this patient, including time for face to face visit via telemedicine, review of medical records, imaging studies and discussion of findings with providers, the patient and/or family. Dr Nava Parish [facility] For Inpatient follow-up with [facility] physician please call [facility] at . As we are not an outpatient service for any post hospital discharge needs please contact the hospital for assistance. If you have any questions for the [facility] physicians or need to reconsult for clinical or diagnostic changes please contact us via [facility] at . Non-radiologist review of imaging performed to assist with emergent clinical decision-making. Remote physician workstations do not possess the same resolution, calibration, or diagnostic capabilities as hospital-based radiology reading stations, and formal radiologist read is necessary. Signature :Braydon Parish
[2025-03-09 18:56] LABS: Anion Gap 7 (7-16); Carbon Dioxide 27.1 mMol/L (20.0-31.0); Chloride 107 mMol/L (98-107); Potassium 3.1 mMol/L (3.4-5.1); Sodium 141 mMol/L (136-145)
[2025-03-09 19:09] LABS: Ammonia < 10 uMol/L (11-32)
[2025-03-09] MEDS: THIAMINE INJ 100 MG/ML VIAL 2 ML 500 MG IVP (20:04)
[2025-03-09] MEDS: ASPIRIN 300 MG SUPP PR (20:38)
[2025-03-09] MEDS: cefTRIAXone/D5w 1gm IV premix 1 GM/50 ML BAG IV (21:19)
[2025-03-09] MEDS: POTASSIUM CHL 10 mEq IVPB 10 MEQ/100 ML BAG 75 MEQ IV ×2 (21:33→23:05)
[2025-03-10] VITALS (8 sets, daily range): BP systolic 102–131; BP diastolic 59–78; PULSE 70–82; RESP 15–18; TEMP 36.1–36.3; O2SAT 93–95; BMI 17.9
--- NOTE | 2025-03-10 | XR_ITS ---
Examination: MRI brain without intravenous contrast. Date and time of exam: March 10, 2025, 1135 hours INDICATIONS: Patient found unconscious with worsening confusion the last week Technique: Multiple axial and sagittal images of the brain obtained. Siemens high-resolution 1.5 Desirae short bore scanners utilized. Sagittal sections, T1-weighted, TR 500, TE 14, are performed. Axial sections proton-density and T2-weighted have been obtained. Inversion recovery axial images, TR 9, 260, TE 111, TI 2500. Diffusion weighted images, axial sections, TR 4800, TE 128, B value 1000 Axial sections, ADC map, TR 4800, TE 128 Findings: Enlargement of the sella turcica is not present. The optic chiasm and infundibular are not remarkable. Prepontine and interpeduncular cisterns are not enlarged. There is no localized enlargement of the medulla or camilla. Fourth ventricle and cerebellar tonsils appear normal in position. No subacute area of hemorrhage density is seen. Mass in the cerebellopontine angle region is not evident. Globes symmetrical. Orbital musculature including medial lateral rectus muscles do not exhibit abnormality. Diffusion-weighted images demonstrate no focus of restricted diffusion. Increased white matter signal prominent Mass effect upon the ventricular system is not identified. Impression: Negative for acute hemorrhage mass effect or midline shift No acute infarct Prominent chronic microvascular white matter change
[2025-03-10 05:35] LABS: Basophils # (Auto) 0.0 Thou/mm3 (0.0-0.2); Basophils % (Auto) 1 % (0-2.5); Eosinophils # (Auto) 0.1 Thou/mm3 (0.0-0.5); Eosinophils % (Auto) 2 % (0-10); Hematocrit 35.0 % (36.0-46.0); Hemoglobin 11.5 g/dL (12.0-16.0); Immature Granulocytes Auto 0.02 Thou/mm3 (0.00-0.00); Lymphocytes # (Auto) 1.5 Thou/mm3 (1.0-4.8); Lymphocytes % (Auto) 24 % (10-50); Mean Corpuscular HGB Conc 32.9 g/dl (31.0-37.0); Mean Corpuscular Hemoglobin 33.8 pg (25.0-35.0); Mean Corpuscular Volume 103 fL (80-100); Monocytes # (Auto) 0.7 Thou/mm3 (0.0-0.8); Monocytes % (Auto) 11 % (0-12); Neutrophils # (Auto) 3.8 Thou/mm3 (1.8-7.7); Neutrophils % (Auto) 62 % (37-80); Nucleated Red Blood Cell # 0.00 Thou/mm3 (0.00-0.00); Nucleated Red Blood Cell % 0 /100 WBC (0); Platelet Count 242 Thou/mm3 (140-440); RDW Standard Deviation 56.0 fL (36.4-46.3); Red Blood Count 3.40 Miln/mm3 (4.00-5.20); White Blood Count 6.1 Thou/mm3 (3.6-11.0)
[2025-03-10 05:52] LABS: Alanine Aminotransferase 27 U/L (10-49); Albumin, Serum 3.4 gm/dL (3.4-4.8); Albumin/Globulin Ratio 1.8 (1.2-2.2); Alkaline Phosphatase 91 U/L (46-116); Anion Gap 11 (7-16); Aspartate Amino Transferase 23 U/L (0-34); BUN/Creatinine Ratio 17 Ratio (12-20); Bilirubin,Total 0.5 mg/dL (0.3-1.2); Blood Urea Nitrogen 10 mg/dL (9-23); Calcium 9.2 mg/dL (8.3-10.6); Calcium (Corrected) 9.7 mg/dL (8.5-10.1); Carbon Dioxide 27.1 mMol/L (20.0-31.0); Chloride 108 mMol/L (98-107); Creatinine (Component) 0.6 mg/dL (0.6-1.3); Estimated Creatinine Clearance 59.6 mL/min (>60); Globulin 1.9 gm/dL (2.3-3.5); Glucose 91 mg/dL (74-106); Magnesium 2.0 mg/dL (1.6-2.6); Osmolality,Calculated 289 (275-295); Phosphorous 2.9 mg/dL (2.4-5.1); Potassium 3.5 mMol/L (3.4-5.1); Sodium 146 mMol/L (136-145); Total Protein 5.3 gm/dL (5.7-8.2); eGFR > 60 See Note
[2025-03-10] MEDS: POLYETHYLENE GLYCOL 17 GM PACKET PO ×2 (09:55→09:56)
[2025-03-10] MEDS: MAGNESIUM OXIDE 400 MG TABLET PO ×2 (09:55→21:26)
[2025-03-10] MEDS: THIAMINE INJ 100 MG/ML VIAL 2 ML IVP (09:55)
[2025-03-10] MEDS: HEPARIN SOD INJ 5000 UNIT/ML VIAL SC ×2 (09:56→21:28)
--- NOTE | 2025-03-10 10:36 | PD.RESDS ---
Planned Discharge Date 03/10/25 DS: Providers Provider Date of admission: 03/05/25 21:40 Primary care physician: Physician No Primary/Family Admitting Provider: Doroteo Garza MD Attending Provider on Admission: Zachariah Ng MD Consults: 03/06/25 01:06 Referral Physical Therapy Routine Comment: Physician Instructions: 03/06/25 03:03 Referral Speech Therapy Routine Comment: Attending Provider on DC: Zachariah Ng MD Discharging Provider: Jose Jose MD DS: Diagnosis Problem List Completed Was Problem List Reviewed/Reconciled?: Yes Hospital Course Hospital Course Hospital course: Summary: Patient is a -year-old with a past medical history of who was admitted on with a chief complaint of . Hospital: During patient's hospital course, the main medical diagnoses addressed were . In terms of (medical diagnosis #1), patient had ___ performed. In terms of (medical diagnosis #2), patient had ___ performed. Patient is safe to discharge. Further discharge instructions below. Discharge Recommendations: -Follow up with PCP within 1 week of discharge -Continue rest of medications as previously prescribed -Return to the ED or call EMS if symptoms return and/or worsen. Hospital Diagnoses: # # # Status at Discharge Cognitive/Behavioral Status at Discharge: stable Functional Status at Discharge: independent ambulation Overall Status at Discharge: patient is back to baseline Patient's care plan was discussed with my attending, Dr. Ng, and senior resident, Dr. Pandey. Jose Jose, DO Internal Medicine, PGY-1 Time Spent with Patient Time attestation: Total time spent providing and/or coordinating discharge services: Exam Vital Signs Temp Pulse Resp BP Pulse Ox O2 Del Method 97.2 F 76 15 131/78 H 95 Room Air 03/10/25 04:00 03/10/25 09:56 03/10/25 04:00 03/10/25 09:56 03/10/25 04:00 03/10/25 04:00 Discharge Plan Prescriptions/Referrals Prescriptions/Med Rec: No Action atorvastatin 40 mg tablet 1 tab PO HS Patient Comments: TAKE 1 TABLET BY MOUTH EVERY DAY AT NIGHT AT BEDTIME hydrocodone-acetaminophen 5-325 mg tablet 1 tab PO BID Patient Comments: TAKE 1 TABLET BY MOUTH TWICE A DAY NEEDED amlodipine 5 mg tablet 1 tab PO DAILY Patient Comments: TAKE 1 TABLET BY MOUTH EVERY DAY gabapentin 300 mg capsule 1 cap PO TID Patient Comments: TAKE 1 CAPSULE BY MOUTH THREE TIMES A DAY FOR NEUROPATHY acetaminophen-codeine 300-30 mg tablet 2 tab PO Q8H MDD 6 PRN (Reason: pain) Qty: 20 0RF lidocaine [Lidoderm] 5 % adhesive patch,medicated 2 patch topical QDAY PRN (Reason: pain) Qty: 30 0RF Rx Instructions: leave on most painful area for up to 12 hrs Referrals: No Primary/Family,Physician [Primary Care Provider] Patient/Caregiver Discharge Instructions Discharge Activity: activity as tolerated Print Language: Upper Sorbian
--- NOTE | 2025-03-10 12:19 | PC.SS ---
Addendum entered by Belkys Christian 03/10/25 13:54: SS sent message via [employer] for [employer], no response Original Note: SS reached out to [facility], [place] in regards to DC today. No answer. VM left.
--- NOTE | 2025-03-10 15:11 | PC.SS ---
SS received a call from [facility] [phone] to setup transport for the pt. During call SS was informed by Dr. Ng pt will need Neuro to clear prior to DC. Dr. Ng anticipates pt will be ready tomorrow. SS to follow up with [facility] as they will provide transport for pt.
--- NOTE | 2025-03-10 15:49 | ESPR_ITS ---
<Statement entered by Priyanka Pandey MD - 03/10/25 16:19> Patient was seen and examined by me personally. I have directly supervised and reviewed documentation by the team resident and agree with its findings with any exceptions or additional findings as below. Plan of care was discussed with the attending, Dr. Ng. Patient has significantly improved mentation today, able to answer questions. Patient went for MRI, showed no acute infarcts. Will be ready for discharge tomorrow. Priyanka Pandey, PGY-3 Documentation for date of: 03/10/25 Subjective Subjective Interval history: No overnight events. Patient was examined at bedside; they appear A&Ox2 (much improved) and in NAD. Today, she appears markedly improved and is much less somnolent, lethargic, and confused. Vitals/labs today significant for sodium 141->146 but otherwise WNL. Physical exam was non-contributory. It is currently believed that patient's rapid improvement may have been due to the initiation of thiamine supplementation. All stroke work-up so far has been negative and patient is much more alert and oriented than she appeared yesterday. 03/10 brain MRI has been taken but is pending read and patient is otherwise medically cleared and just pending SNF placement. Exam Vital Signs Temp Pulse Resp BP Pulse Ox O2 Del Method 97.0 F 82 16 109/65 95 Room Air 03/10/25 12:00 03/10/25 12:00 03/10/25 12:00 03/10/25 12:00 03/10/25 12:00 03/10/25 12:00 Narrative Exam General: More awake and responsive than yesterday. Skin: Warm, dry, intact, no obvious rash. Head: Normocephalic, atraumatic. Eyes: EOMI. Anicteric, vision grossly intact. Ears: No ear pain, no ear discharge, Hearing grossly intact. Nose: No nasal discharge. Mouth/Throat: Oral mucosa moist. No obvious lesions in oropharynx. Neck: Neck supple, non-tender, no cervical lymphadenopathy. Cardiovascular: Regular rate and rhythm, no murmur, no JVD or carotid bruits. +S1/S2. Respiratory: Bilateral lungs are clear to auscultation, respirations unlabored, no crackles, no wheezing. No accessory muscle use. Gastrointestinal: Soft, nontender, no palpable masses. No guarding or rebound tenderness. Peristalsis present. Extremities: Symmetrical, no significant deformities. No edema, no cyanosis, no clubbing. 2+ radial pulse bilaterally, 2+ posterior tibial pulse bilaterally. Neuro: Alert and oriented x 2. No focal deficits observed. No overt cerebellar signs/incoordination. Psychiatric: Cooperative, appropriate affect. Objective Labs 03/10/25 04:38 03/10/25 04:38 Labs: Laboratory Results - last 24 hr 03/09/25 03/10/25 18:36 04:38 WBC 6.1 RBC 3.40 L Hgb 11.5 L Hct 35.0 L MCV 103 H MCH 33.8 MCHC 32.9 RDW Std Deviation 56.0 H Plt Count 242 D Neut % (Auto) 62 Lymph % (Auto) 24 Slope % (Auto) 11 Eos % (Auto) 2 Baso % (Auto) 1 Neut # (Auto) 3.8 Lymph # (Auto) 1.5 Slope # (Auto) 0.7 Eos # (Auto) 0.1 Baso # (Auto) 0.0 Immature Gran # (Auto) 0.02 H Absolute Nucleated RBC 0.00 Immature Gran % 0 Nucleated RBC % 0 Sodium 141 146 H Potassium 3.1 L 3.5 Chloride 107 108 H Carbon Dioxide 27.1 27.1 Anion Gap 7 11 BUN 10 Creatinine 0.6 Estim Creat Clear Calc 59.6 L eGFR > 60 BUN/Creatinine Ratio 17 Glucose 91 Calculated Osmolality 289 Calcium 9.2 Corrected Calcium 9.7 Phosphorus 2.9 Magnesium 2.0 Total Bilirubin 0.5 AST 23 ALT 27 Alkaline Phosphatase 91 Ammonia < 10 L Total Protein 5.3 L Albumin 3.4 Globulin 1.9 L Albumin/Globulin Ratio 1.8 Quality Measures Quality Measures VTE prophylaxis and none Advance care planning discussed with:: patient Assessment & Plan Assessment Current Active Medications: Generic Name Dose Route Start Last Admin Trade Name Freq PRN Reason Stop Dose Admin Acetaminophen 650 mg 03/05/25 22:20 Acetaminophen 325 Mg Tablet PO 04/04/25 22:19 Q6H PRN Fever >101.5 Acetaminophen 650 mg 03/07/25 08:07 Acetaminophen 325 Mg Tablet PO 04/04/25 22:19 Q6H PRN PAIN 1-4 Amlodipine Besylate 5 mg 03/06/25 09:00 03/10/25 09:56 Amlodipine Besylate 5 Mg Tablet PO 04/05/25 08:59 5 mg QDAY DONOVAN Administration Aspirin 300 mg 03/09/25 19:30 03/10/25 09:57 Asp[address] 04/08/25 19:29 Not Given DAILY DONOVAN Heparin Sodium (Porcine) 5,000 unit 03/06/25 09:00 03/10/25 09:56 Heparin Sod Inj 5000 Unit/Ml Vial SC 03/20/25 08:59 5,000 unit BID DONOVAN Administration Ceftriaxone Sodium/Dextrose 1 gm in 50 mls @ 100 mls/hr 03/06/25 21:00 03/09/25 21:19 Rocephin/D5w 1gm Iv Premix IV 03/13/25 20:59 100 mls/hr Q24H DONOVAN Administration Lactulose 45 gm 03/08/25 18:00 03/10/25 13:30 Lactulose Syrup 20 Gm/30 Ml Udc PO 04/07/25 17:59 Not Given Q6HR DONOVAN Protocol Magnesium Hydroxide 30 ml 03/06/25 01:04 03/06/25 13:58 Milk Of Magnesia Susp 30 Ml Udc PO 04/05/25 01:03 30 ml Q12HR PRN Administration CONSTIPATION Protocol Magnesium Oxide 400 mg 03/06/25 13:30 03/10/25 09:55 Magnesium Oxide 400 Mg Tablet PO 04/05/25 13:29 400 mg BID DONOVAN Administration Polyethylene Glycol 17 gm 03/07/25 13:45 03/10/25 09:56 Polyethylene Glycol 17 Gm Packet PO 04/06/25 13:44 17 gm QDAY DONOVAN Administration Thiamine HCl 100 mg 03/09/25 18:15 03/10/25 09:55 Thiamine Inj 100 Mg/Ml Vial 2 Ml IVP 04/08/25 18:14 100 mg QDAY DONOVAN Administration Plan 79-year-old female patient with significant history of hypertension, was brought in by EMS for evaluation regarding altered mental status. Admitted for acute encephalopathy found to have UTI. #Acute encephalopathy, 2/2 #UTI vs. hospital-acquired delirium vs. dementia (waxing and waning) vs. CVA vs. Wernicke's encephalopathy Patient was AOx1 on initial examination, thought she was in [place] and that the year was 2064. Lives with her daughter, has a neonatal surgeon assist her in the afternoons.Was unsure of how long she was unconscious for 03/05 admission UA turbid and showed protein +1, ketones +3, RBC 24, WBC 396, bacteria +4, leukocyte esterase + On 03/09, a rapid response was called due to new-onset somnolence and lethargy The underlying etiology of both patient's persistent encephalopathy and new lethargy/somnolence was unclear but she became much more alert and oriented by 03/10 after thiamine supplementation was started Dx: -03/05 UCx ordered, showed Klebsiella pneumoniae sensitive to ceftriaxone -03/[address] ordered, negative -03/09 head neck CTA ordered, negative -03/10 head MRI w/o contrast taken, showed ___ Rx: -IV LR fluid @ 75 cc/hr -Aspirin [address] qD -Thiamine 100 mg IV qD -Ceftriaxone 1g IV qD [03/05--] for treatment of UTI -Correct electrolytes as appropriate -Tele-Neurology was consulted, appreciate recommendations #Constipation, resolved No BM for over 3 days. Abdominal xray moderate amounts of stool, and concern for small bowel ileus. Now having BMs Dx: -03/05 TSH ordered, WNL Rx: -Milk of Magnesia 30 mL PO Q12HR PRN -Miralax 17 g PO qD -Started on lactulose 30 gm thrice daily #Electrolyte derangements #Hypokalemia, resolved #Hypomagnesemia, resolved 03/06 potassium 3.3, magnesium 1.5 Rx: -Replete electrolytes as appropriate #CIWA Patient reports drinking a large glass of wine each night for many years, is unsure of how many years but appears for decades. No signs of withdrawal at the moment. Rx: -CIWA protocol discontinued as of 03/07 #Hx of HTN Patient unsure, but in medications she takes amlodipine 5mg PO Plan: -Amlodipine 5mg PO qD Health Maintenance: Code status: Full DVT prophylaxis: Heparin GI prophylaxis: Famotidine Diet: Cardiac [place]: None Lines: PIV Supplemental O2: NC Disposition: Admit to [facility] for acute encephalopathy Patient plan of care was discussed with the attending physician, Dr. Berenice Jose, DO PGY-1 Attending Provider Attestation/Addendum I have examined the patient, reviewed labs and imaging findings, discussed the case with the resident(s), and reviewed entered orders. I agree with the plan of care as outlined in this note, with these additional summaries/recommendations: Patient seen at bedside. Patient originally admitted for acute encephalopathy secondary to urinary tract infection. Patient initially showed improvement in mentation throughout hospitalization. Yesterday evening patient appeared more somnolent and stroke alert was initiated. CT head negative for acute hemorrhage, mass effect or midline shift. CTA head and neck negative for LVO or dissection. MRI taken and pending read. Consult in-house neurology, recommendations appreciated. This morning mentation appears much improved. Patient is from home and in-house PT recommends SNF. We will follow-up with clinical social work therapist and family for placement. Continue IV antibiotic for urinary tract infection. Urine culture grew Klebsiella pneumonia. Continue frequent reorientation and nonpharm measures to prevent delirium. Continue bowel regimen for constipation. Patient updated on the plan. Please see residents note for additional details and management. Dr. Berenice MD
--- NOTE | 2025-03-10 20:53 | PD.RESPRO ---
Documentation for date of: 03/10/25 Subjective Subjective Interval history: Patient seen today at the bedside found awake, alert, orientedx1-2. No overnight events reported. Vital signs and labs reviewed. Patient was able to ambulate around the room with asssistance of walker. Brain MRI reviewed no signs of acute infarcts. Acute encephalopathy likely secondary to UTI. Exam Vital Signs Temp Pulse Resp BP Pulse Ox O2 Del Method 97.0 F 75 18 121/67 94 L Room Air 03/10/25 20:00 03/10/25 20:00 03/10/25 20:00 03/10/25 20:00 03/10/25 20:00 03/10/25 16:00 Narrative Exam Physical Exam GENERAL: NAD, AAOx1-2 HEENT: Moist mucosa. Eyes open, symmetrical, & clear CARDIO: Heart RRR, no obvious murmurs PULM: No noted coughing/dyspnea CTA B/L, no R/W/R GI: Abdomen soft, nondistended, no pain on palpation. BSx4 SKIN/MSK/EXT: No wounds/rashes/edema/amputations, no pain on palpation. Pedal pulses present B/L NEURO: AAOx1-2, no focal neuro deficits, able to move all 4 extremities Objective Labs 03/11/25 04:46 03/11/25 04:46 Labs: Laboratory Results - last 24 hr 03/10/25 04:38 WBC 6.1 RBC 3.40 L Hgb 11.5 L Hct 35.0 L MCV 103 H MCH 33.8 MCHC 32.9 RDW Std Deviation 56.0 H Plt Count 242 D Neut % (Auto) 62 Lymph % (Auto) 24 [place] % (Auto) 11 Eos % (Auto) 2 Baso % (Auto) 1 Neut # (Auto) 3.8 Lymph # (Auto) 1.5 [place] # (Auto) 0.7 Eos # (Auto) 0.1 Baso # (Auto) 0.0 Immature Gran # (Auto) 0.02 H Absolute Nucleated RBC 0.00 Immature Gran % 0 Nucleated RBC % 0 Sodium 146 H Potassium 3.5 Chloride 108 H Carbon Dioxide 27.1 Anion Gap 11 BUN 10 Creatinine 0.6 Estim Creat Clear Calc 59.6 L eGFR > 60 BUN/Creatinine Ratio 17 Glucose 91 Calculated Osmolality 289 Calcium 9.2 Corrected Calcium 9.7 Phosphorus 2.9 Magnesium 2.0 Total Bilirubin 0.5 AST 23 ALT 27 Alkaline Phosphatase 91 Total Protein 5.3 L Albumin 3.4 Globulin 1.9 L Albumin/Globulin Ratio 1.8 Quality Measures Quality Measures VTE prophylaxis and none Advance care planning discussed with:: patient Assessment & Plan Assessment Current Active Medications: Generic Name Dose Route Start Last Admin Trade Name Freq PRN Reason Stop Dose Admin Acetaminophen 650 mg 03/05/25 22:20 Acetaminophen 325 Mg Tablet PO 04/04/25 22:19 Q6H PRN Fever >101.5 Acetaminophen 650 mg 03/07/25 08:07 Acetaminophen 325 Mg Tablet PO 04/04/25 22:19 Q6H PRN PAIN 1-4 Amlodipine Besylate 5 mg 03/06/25 09:00 03/10/25 09:56 Amlodipine Besylate 5 Mg Tablet PO 04/05/25 08:59 5 mg QDAY DONOVAN Administration Aspirin 300 mg 03/09/25 19:30 03/10/25 09:57 Aspirin 300 Mg Supp MI 04/08/25 19:29 Not Given DAILY DONOVAN Heparin Sodium (Porcine) 5,000 unit 03/06/25 09:00 03/10/25 09:56 Heparin Sod Inj 5000 Unit/Ml Vial SC 03/20/25 08:59 5,000 unit BID DONOVAN Administration Ceftriaxone Sodium/Dextrose 1 gm in 50 mls @ 100 mls/hr 03/06/25 21:00 03/09/25 21:19 Rocephin/D5w 1gm Iv Premix IV 03/13/25 20:59 100 mls/hr Q24H DONOVAN Administration Lactulose 45 gm 03/08/25 18:00 03/10/25 19:51 Lactulose Syrup 20 Gm/30 Ml Udc PO 04/07/25 17:59 Not Given Q6HR DONOVAN Protocol Magnesium Hydroxide 30 ml 03/06/25 01:04 03/06/25 13:58 Milk Of Magnesia Susp 30 Ml Udc PO 04/05/25 01:03 30 ml Q12HR PRN Administration CONSTIPATION Protocol Magnesium Oxide 400 mg 03/06/25 13:30 03/10/25 09:55 Magnesium Oxide 400 Mg Tablet PO 04/05/25 13:29 400 mg BID DONOVAN Administration Polyethylene Glycol 17 gm 03/07/25 13:45 03/10/25 09:56 Polyethylene Glycol 17 Gm Packet PO 04/06/25 13:44 17 gm QDAY DONOVAN Administration Thiamine HCl 100 mg 03/09/25 18:15 03/10/25 09:55 Thiamine Inj 100 Mg/Ml Vial 2 Ml IVP 04/08/25 18:14 100 mg QDAY DONOVAN Administration Plan 79-year-old female patient with significant history of hypertension, was brought in by EMS for evaluation regarding altered mental status. Admitted for acute encephalopathy found to have UTI. #Acute encephalopathy #Dementia Patient currently AAOx1-2 depending when you ask her however improving Imaging found to be negative for acute infarcts, hemorrhage, LVO, midline shift or mass effect, there is age related atrophy etiology likely to be in the setting of UTI vs dementia, less likely wernickes no signs of opthalmoplegia or nystagmus Patient states she still continues to drive and sometimes forgets her way back home. - Continue tx of UTI - advice against driving until cleared by neurology #UTI #Constipation, resolved #Electrolyte derangements #Hypokalemia, resolved #Hypomagnesemia, resolved #CIWA #Hx of HTN - as per primary team Case discussed with my attending Dr. Eric Chaudhry MD PGY-2 Attending Provider Attestation/Addendum I personally have seen and examined the patient at the bedside and agree with the residents findings, assessment and plan of care. Patient presenting symptoms are consistent with metabolic encephalopathy from urinary tract infection, with baseline dementia. Advised no driving until cleared by neurology. Continue with antibiotics for UTI as per primary team.
[2025-03-10] MEDS: cefTRIAXone/D5w 1gm IV premix 1 GM/50 ML BAG IV (21:31)
[2025-03-10] MEDS: LACTULOSE SYRUP 20 GM/30 ML UDC 45 GM PO (23:57)
[2025-03-11] VITALS (7 sets, daily range): BP systolic 111–147; BP diastolic 71–78; PULSE 72–85; RESP 15–18; TEMP 36.1–36.7; O2SAT 95–96
[2025-03-11 05:59] LABS: Basophils # (Auto) 0.0 Thou/mm3 (0.0-0.2); Basophils % (Auto) 1 % (0-2.5); Eosinophils # (Auto) 0.2 Thou/mm3 (0.0-0.5); Eosinophils % (Auto) 4 % (0-10); Hematocrit 34.9 % (36.0-46.0); Hemoglobin 11.9 g/dL (12.0-16.0); Immature Granulocytes Auto 0.03 Thou/mm3 (0.00-0.00); Lymphocytes # (Auto) 1.3 Thou/mm3 (1.0-4.8); Lymphocytes % (Auto) 27 % (10-50); Mean Corpuscular HGB Conc 34.1 g/dl (31.0-37.0); Mean Corpuscular Hemoglobin 35.3 pg (25.0-35.0); Mean Corpuscular Volume 104 fL (80-100); Monocytes # (Auto) 0.5 Thou/mm3 (0.0-0.8); Monocytes % (Auto) 10 % (0-12); Neutrophils # (Auto) 2.7 Thou/mm3 (1.8-7.7); Neutrophils % (Auto) 58 % (37-80); Nucleated Red Blood Cell # 0.00 Thou/mm3 (0.00-0.00); Nucleated Red Blood Cell % 0 /100 WBC (0); Platelet Count 232 Thou/mm3 (140-440); RDW Standard Deviation 55.7 fL (36.4-46.3); Red Blood Count 3.37 Miln/mm3 (4.00-5.20); White Blood Count 4.7 Thou/mm3 (3.6-11.0)
[2025-03-11 06:16] LABS: Alanine Aminotransferase 27 U/L (10-49); Albumin, Serum 3.3 gm/dL (3.4-4.8); Albumin/Globulin Ratio 1.5 (1.2-2.2); Alkaline Phosphatase 91 U/L (46-116); Anion Gap 11 (7-16); Aspartate Amino Transferase 30 U/L (0-34); BUN/Creatinine Ratio 14 Ratio (12-20); Bilirubin,Total 0.5 mg/dL (0.3-1.2); Blood Urea Nitrogen 7 mg/dL (9-23); Calcium 9.1 mg/dL (8.3-10.6); Calcium (Corrected) 9.7 mg/dL (8.5-10.1); Carbon Dioxide 26.8 mMol/L (20.0-31.0); Chloride 106 mMol/L (98-107); Creatinine (Component) 0.5 mg/dL (0.6-1.3); Estimated Creatinine Clearance 71.5 mL/min (>60); Globulin 2.2 gm/dL (2.3-3.5); Glucose 79 mg/dL (74-106); Magnesium 1.6 mg/dL (1.6-2.6); Osmolality,Calculated 283 (275-295); Phosphorous 3.3 mg/dL (2.4-5.1); Potassium 3.1 mMol/L (3.4-5.1); Sodium 144 mMol/L (136-145); Total Protein 5.5 gm/dL (5.7-8.2); eGFR > 60 See Note
[2025-03-11] MEDS: HEPARIN SOD INJ 5000 UNIT/ML VIAL SC (09:13)
[2025-03-11] MEDS: THIAMINE INJ 100 MG/ML VIAL 2 ML IVP (09:13)
[2025-03-11] MEDS: MAGNESIUM OXIDE 400 MG TABLET PO (09:13)
[2025-03-11] MEDS: POTASSIUM CHLORIDE 10% 20 MEQ/15 ML UDC 40 MEQ PO (09:24)
[2025-03-11] MEDS: ASPIRIN 300 MG SUPP PR (10:12)
--- NOTE | 2025-03-11 10:21 | PC.SS ---
SS follow up note; SS contacted Janeth York [phone] to setup transport for the pt. Janeth informed SS that transportation would be set up for 12:30. SS contacted patient's nurse, Brittney to update her. SS will update patient as well.
--- NOTE | 2025-03-11 11:47 | PC.NURSE ---
REPORT GIVEN TO HERNANDEZ BAZAN KAUNAKAKAI.
--- NOTE | 2025-03-11 12:00 | PC.SS ---
Addendum entered by Eunice Jimenez 03/11/25 13:18: SS was contacted by patient's daughter, in law, Laverne SS updated her on ETA. Original Note: SS attempted to contact patient's daughter to update her on ETA as well as sister in law, Laverne, SS left Voicemail.
[2025-03-11] MEDS: LACTULOSE SYRUP 20 GM/30 ML UDC 45 GM PO (12:28)
--- NOTE | 2025-03-11 16:24 | ESDS_ITS ---
<Statement entered by Priyanka Pandey MD - 03/11/25 17:16> Patient was seen and examined by me personally. I have reviewed the below documentation by the team resident and agree with its findings with any exceptions as below. Discharge plan was discussed with the attending, Dr. Mcgrath. Priyanka Pandey, PGY-3 Planned Discharge Date 03/11/25 DS: Providers Provider Date of admission: 03/05/25 21:40 Primary care physician: Physician No Primary/Family Admitting Provider: Doroteo Garza MD Attending Provider on Admission: Zachariah Ng MD Consults: 03/06/25 01:06 Referral Physical Therapy Routine Comment: Physician Instructions: 03/06/25 03:03 Referral Speech Therapy Routine Comment: 03/10/25 15:10 Consult to Neurology / Tele-Neurology Routine Comment: Consulting Provider: Federico Reyes Attending Provider on DC: Vik Mcgrath DO Discharging Provider: Jose Jose MD DS: Diagnosis Problem List Completed Was Problem List Reviewed/Reconciled?: Yes Hospital Course Hospital Course Hospital course: Summary: 79-year-old female patient with significant history of hypertension, was brought in by EMS on 03/05/25 for evaluation regarding altered mental status. Admitted for acute encephalopathy found to have UTI. Hospital: During patient's hospital course, she was treated with Rocephin IV for her UTI and a rigorous bowel regimen for her constipation, both of which were thought to be potential contributing etiologies for her acute encephalopathy. However, patient continued to remain seemingly obtunded and became newly lethargic and unresponsive on 03/09 which resulted in Tele-Neurology consultation and patient being started on stroke work-up and treatment. All head imaging was negative for stroke and patient seemed to improve after thiamine IV was started on 03/09. By 03/11, patient was deemed clinically stabilized and discharged to a SNF in [place]. Patient is safe to discharge. Further discharge instructions below. Discharge Recommendations: -Follow up with PCP within 1 week of discharge -Take cefuroxime 250 mg by mouth for 2 more days to complete antibiotic course for treatment of urinary tract infection -Take thiamine 100 mg by mouth once per day for 30 days -We have started you on mirtazapine 7.5 mg by mouth every night for sleep, appetite, and mood (please take for 30 days) -Do not take gabapentin until OK'd by PCP -Continue rest of medications as previously prescribed -Return to the ED or call EMS if symptoms return and/or worsen. Hospital Diagnoses: #Acute encephalopathy most likely 2/2 #UTI vs. hospital-acquired delirium vs. dementia (waxing and waning) vs. CVA vs. Wernicke's encephalopathy #Constipation, resolved #Electrolyte derangements #Hypokalemia, resolved #Hypomagnesemia, resolved #CIWA #Hx of HTN Status at Discharge Cognitive/Behavioral Status at Discharge: stable Functional Status at Discharge: independent ambulation Overall Status at Discharge: patient is back to baseline Patient's care plan was discussed with my attending, Dr. Mcgrath, and senior resident, Dr. Pandey. Jose Jose, DO Internal Medicine, PGY-1 Time Spent with Patient Time attestation: Total time spent providing and/or coordinating discharge services: Time spent: Greater than 30 minutes Exam Vital Signs Temp Pulse Resp BP Pulse Ox O2 Del Method 97.1 F 85 18 138/74 H 95 Room Air 03/11/25 11:59 03/11/25 12:00 03/11/25 11:59 03/11/25 11:59 03/11/25 11:59 03/11/25 11:59 Narrative Exam General: More awake and responsive than yesterday. Skin: Warm, dry, intact, no obvious rash. Head: Normocephalic, atraumatic. Eyes: EOMI. Anicteric, vision grossly intact. Ears: No ear pain, no ear discharge, Hearing grossly intact. Nose: No nasal discharge. Mouth/Throat: Oral mucosa moist. No obvious lesions in oropharynx. Neck: Neck supple, non-tender, no cervical lymphadenopathy. Cardiovascular: Regular rate and rhythm, no murmur, no JVD or carotid bruits. +S1/S2. Respiratory: Bilateral lungs are clear to auscultation, respirations unlabored, no crackles, no wheezing. No accessory muscle use. Gastrointestinal: Soft, nontender, no palpable masses. No guarding or rebound tenderness. Peristalsis present. Extremities: Symmetrical, no significant deformities. No edema, no cyanosis, no clubbing. 2+ radial pulse bilaterally, 2+ posterior tibial pulse bilaterally. Neuro: Alert and oriented x 2. No focal deficits observed. No overt cerebellar signs/incoordination. Psychiatric: Cooperative, appropriate affect.[facility] Discharge Plan Plan Patient Disposition: Xfer Skilled Nsg Fac (SNF) Patient condition on transfer: Stable Care Plan Goals: Discharge Recommendations: -Follow up with PCP within 1 week of discharge -Take cefuroxime 250 mg by mouth for 2 more days to complete antibiotic course for treatment of urinary tract infection -Take thiamine 100 mg by mouth once per day for 30 days -We have started you on mirtazapine 7.5 mg by mouth every night for sleep, appetite, and mood (please take for 30 days) -Do not take gabapentin until OK'd by PCP -Continue rest of medications as previously prescribed -Return to the ED or call EMS if symptoms return and/or worsen. Prescriptions/Referrals Prescriptions/Med Rec: New thiamine HCl (vitamin B1) 100 mg capsule 100 mg PO QDAY 30 Days Qty: 30 0RF mirtazapine 7.5 mg tablet 7.5 mg PO HS 30 Days Qty: 30 0RF Continued atorvastatin 40 mg tablet 1 tab PO HS Patient Comments: TAKE 1 TABLET BY MOUTH EVERY DAY AT NIGHT AT BEDTIME amlodipine 5 mg tablet 1 tab PO DAILY Patient Comments: TAKE 1 TABLET BY MOUTH EVERY DAY Held gabapentin 300 mg capsule 1 cap PO TID Hold Instructions: Resume on 03/24/25. Hold until follow-up with PCP Patient Comments: TAKE 1 CAPSULE BY MOUTH THREE TIMES A DAY FOR NEUROPATHY Discontinued hydrocodone-acetaminophen 5-325 mg tablet 1 tab PO BID Patient Comments: TAKE 1 TABLET BY MOUTH TWICE A DAY NEEDED acetaminophen-codeine 300-30 mg tablet 2 tab PO Q8H MDD 6 PRN (Reason: pain) Qty: 20 0RF lidocaine [Lidoderm] 5 % adhesive patch,medicated 2 patch topical QDAY PRN (Reason: pain) Qty: 30 0RF Rx Instructions: leave on most painful area for up to 12 hrs Referrals: No Primary/Family,Physician [Primary Care Provider] Patient/Caregiver Discharge Instructions Discharge Activity: activity as tolerated Education Materials: ED CYSTITIS Female Adult Print Language: Chinese Stand Alone Forms: Marilyn Award Info., Patient Portal Info Letter Discharge Order Discharge Orders: Discharge (Routine); Ordered 03/10/25 Ordered By: Jose Jose Quality Discharge Quality Measures VTE prophylaxis and stroke Statin ordered >75 y/o:moderate or high intensity dose on DC: no Statin ordered <75 y/o: high intensity dose on DC: no Statin not ordered due to:: not indicated Anticoagulation ordered for A-fib or flutter (current or hx): not indicated Antithrombotic ordered on DC: not indicated (describe) MD Attestestation MD Attestation I have discussed and was present for the essential components of the discharge history, physical examination, diagnosis, and discharge treatment plan with the resident. I agree with the patient's discharge care as documented by the resident and amended herein by me. Bro Mcgrath DO. The patient understood all discharge instructions, all questions were answered satisfactorily. The patient was instructed to return to the Emergency Department is symptoms worsened or persisted. Although this document has been carefully reviewed, there may still be some phonetic and other typographical errors. These errors are purely grammatical due to imperfections in the software program and should not be construed in any way to compromise the substance of the patient's medical care during this visit.
== END 2025-03-11 13:45 | disposition skilled nursing facility (03) | DRG 689 ==
LOC: SERX 20:33 → S3SX 03-06 06:19 → SERHOLD 03-06 06:19
PROVIDERS: Nurse Practitioner Family; Psychiatry & Neurology Neurology; Admitting Provider Student in an Organized Health Care Education/Training Program; Emergency Provider Emergency Medicine; Visit Provider Student in an Organized Health Care Education/Training Program
DX: N39.0 Urinary tract infection, site not specified (principal); G93.41 Metabolic encephalopathy; K56.7 Ileus, unspecified; I10 Essential (primary) hypertension; K59.00 Constipation, unspecified; E87.6 Hypokalemia; E83.42 Hypomagnesemia; B96.1 Klebsiella pneumoniae [K. pneumoniae] as the cause of diseases classified elsewhere; Z79.82 Long term (current) use of aspirin; F03.90 Unspecified dementia, unspecified severity, without behavioral disturbance, psychotic disturbance, mood disturbance, and anxiety; Z79.899 Other long term (current) drug therapy; Z88.2 Allergy status to sulfonamides; Z88.1 Allergy status to other antibiotic agents
CPT/HCPCS: 36415; 51701; 70450; 70496; 70498; 70551; 71045; 72125; 73502; 74018; 80048; 80051; 80053; 80069; 80307; 81001; 82140; 83605; 83735; 83880; 84100; 84443; 84484; 85025; 85730; 87077; 87086; 87186; 92610; 93005; 93225; 97162; 99284; A4649; J0696; J1644; J3411; J3480; J7120; Q9967; A9270